=== PATIENT | male | born 1945 | race Caucasian/White ===

== ENCOUNTER 2020-05-08 08:38 | Outpatient (CLI) | payer MEDICARE, OTHER, SELFPAY | END 2020-05-08 08:39 | disposition home or self-care (01) | LOC: ANHCOVIDVC 08:38 | PROVIDERS: PCP Family Medicine | DX: Z23 Encounter for immunization (principal) | CPT/HCPCS: 0001A; 91300 ==

== ENCOUNTER 2020-05-29 08:46 | Outpatient (CLI) | payer MEDICARE, OTHER, SELFPAY | END 2020-05-29 08:47 | disposition home or self-care (01) | LOC: ANHCOVIDVC 08:46 | PROVIDERS: PCP Family Medicine | DX: Z23 Encounter for immunization (principal) | CPT/HCPCS: 0002A; 91300 ==

== ENCOUNTER → 2020-08-22 01:34 | Outpatient (CLI) | payer MEDICARE, OTHER, SELFPAY ==
[2020-08-24 08:34] LABS: SARS-CoV-2 RNA PCR Negative
== END ==
PROVIDERS: PCP Family Medicine; Visit Provider Internal Medicine Gastroenterology
DX: Z01.812 Encounter for preprocedural laboratory examination (principal); Z20.822 Contact with and (suspected) exposure to COVID-19
CPT/HCPCS: C9803; U0003; U0005

== ENCOUNTER 2020-08-25 02:14 | Day surgery (SDC) | payer MEDICARE, OTHER, SELFPAY ==
[2020-08-18 10:17] VITALS: BMI 26.5
--- NOTE | 2020-08-24 12:26 | WPDANESEPPF ---
Anes - Initial Pre Proc Eval Procedure: Operation Date: 08/25/20 08:00 Proposed Procedures p Colonoscopy - Steve Moses MD Date/Time: 08/24/20 12:26 Surgeon: Steve Moses MD Pre Op Diagnosis: diarrhea Patient Data Age: 75 Gender: M Height: 1.79 m Weight: 85 kg Allergies Allergy/AdvReac Type Severity Reaction Status Date / Time No Known Allergies Allergy Verified 08/25/20 06:47 Home Medications Medication Instructions Recorded Confirmed Type montelukast 10 mg tablet 10 mg PO DAILY 03/12/19 08/25/20 History tamsulosin 0.4 mg capsule 0.4 mg PO DAILY 03/12/19 08/25/20 History aspirin 81 mg tablet,delayed 81 mg PO DAILY 12/28/19 08/25/20 History release atorvastatin 10 mg tablet 10 mg PO DAILY #30 tablet 06/07/20 08/25/20 Rx finasteride 5 mg tablet See Rx Instructions .ROUTE 06/09/20 08/25/20 Rx .COMPLEX #90 tablet Patient hx anesthesia problems: none Family hx anesthesia problems: none PMFSH Past Medical History Medical History Allergic rhinitis BPH w urinary obs/LUTS Diverticulosis of intestine, part unspecified, without perforation or abscess with bleeding HLD (hyperlipidemia) Old [place] (myocardial infarction) Skin lesions Smoking Surgical History Surgical History H/O elbow surgery History of appendectomy 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 S/P cholecystectomy Social History Social History Social History: Smoking packs per day: 1 Smoking cigarettes per day: 20.0 Years smoked: 53 Smoking pack-years: 53.00 Smoking status: Heavy tobacco smoker Tobacco type: cigarettes Second hand tobacco smoke exposure: Yes Alcohol intake: current Substance use: never Substance use type: does not use Living arrangements: with family Gender identity (if verbalized by the patient): Male Spiritual care concerns: No Anes - Eval Final PreProcedure Day of Procedure 08/24/20 12:26 Patient weight: overweight Heart: regular rate and rhythm Lungs: clear to auscultation and normal air movement Airway: Mallampati scale class II Neurological: alert and oriented Last oral intake: >/= 8 hours ASA classification: III Emergent: no Anesthetic plan: proceed Anesthesia type and monitoring: general GIVS Informed Consent: The patient's anesthetic plan and its attendant risks and benefits were discussed with the patient/family/POA. Questions were solicited and answers provided to the satisfaction of the patient/family/POA.
[2020-08-25 06:49] VITALS: BP 135/65; PULSE 74; RESP 18; TEMP 36.2; O2SAT 98; BMI 25.7
[2020-08-25] MEDS: LACTATED RINGERS 1,000 ML 150 ML IV CONT (06:53)
--- NOTE | 2020-08-25 07:24 | PM.HPGS ---
History of Present Illness History of Present Illness Consent: Risks, benefits, and alternatives have been discussed and questions answered. Patient agrees to proceed with procedure. Chief complaint: diarrhea Narrative: Fortino Wu is a 75 year old male was had a change in bowel habits. Suddenly, about 3 months ago he began having very urgent bowel movements with diarrhea. Often this is preceded by a crampy lower abdominal pain. At times he has been incontinent of stool. 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 S/P cholecystectomy Social History Social History Social History: Smoking packs per day: 1 Smoking cigarettes per day: 20.0 Years smoked: 53 Smoking pack-years: 53.00 Smoking status: Heavy tobacco smoker Tobacco type: cigarettes Second hand tobacco smoke exposure: Yes Alcohol intake: current Substance use: never Substance use type: does not use Living arrangements: with family Gender identity (if verbalized by the patient): Male Spiritual care concerns: No Meds Home Medications and Allergies Home Medications Medication Instructions Recorded Confirmed Type montelukast 10 mg tablet 10 mg PO DAILY 03/12/19 08/25/20 History tamsulosin 0.4 mg capsule 0.4 mg PO DAILY 03/12/19 08/25/20 History aspirin 81 mg tablet,delayed 81 mg PO DAILY 12/28/19 08/25/20 History release atorvastatin 10 mg tablet 10 mg PO DAILY #30 tablet 06/07/20 08/25/20 Rx finasteride 5 mg tablet See Rx Instructions .ROUTE 06/09/20 08/25/20 Rx .COMPLEX #90 tablet Allergies Allergy/AdvReac Type Severity Reaction Status Date / Time No Known Allergies Allergy Verified 08/25/20 06:47 Vital Signs Vital Signs - 24 hr 06/25/21 06:49 Temperature 36.2 C L Pulse Rate 74 Respiratory Rate 18 Blood Pressure 135/65 Pulse Oximetry 98 Exam Resp: Auscultation: clear to auscultation bilaterally Cardio: Rate: regular rate Rhythm: regular rhythm GI: GI Palp: Yes Soft to palpation and No Tenderness to palpation present (GI) Assessment and Plan Assessment and plan (1) Chronic diarrhea: Code(s): K52.9 - Noninfective gastroenteritis and colitis, unspecified Status: Acute Assessment and Plan: Colonoscopy with possible biopsy or polypectomy or cautery or injection of substances.
[2020-08-25 08:15] VITALS: BP 104/57; PULSE 60; RESP 15; O2SAT 99
[2020-08-25 08:25] VITALS: BP 110/65; PULSE 58; RESP 22; O2SAT 98
[2020-08-25 08:35] VITALS: BP 126/66; PULSE 60; RESP 20; O2SAT 100
== END 2020-08-25 08:53 | disposition home or self-care (01) ==
PROVIDERS: PCP Family Medicine; Visit Provider Internal Medicine Gastroenterology
PROC: 0DJD8ZZ Inspection of Lower Intestinal Tract, Via Natural or Artificial Opening Endoscopic (ICD-10-PCS; CPT 45378; principal; 2020-08-25 08:00)
DX: K59.1 Functional diarrhea (principal); K57.30 Diverticulosis of large intestine without perforation or abscess without bleeding; D12.2 Benign neoplasm of ascending colon; N40.1 Benign prostatic hyperplasia with lower urinary tract symptoms; E78.5 Hyperlipidemia, unspecified; I25.2 Old myocardial infarction; F17.210 Nicotine dependence, cigarettes, uncomplicated; Z79.82 Long term (current) use of aspirin
CPT/HCPCS: 45385; 45380; 88305; J2001; J2704; J7120

== ENCOUNTER → 2021-02-01 12:31 | Outpatient (CLI) | payer MEDICARE, OTHER, SELFPAY ==
--- NOTE | ~2021-02-01 | CT_ITS ---
EXAMINATION: CT lung screening DATE: 02/01/2021 13:32 INDICATION: Personal history of nicotine dependence TECHNIQUE: Computed tomography (CT) of the chest was performed without intravenous contrast. The dose -length product was 106.42 mGy-cm. Automated exposure control and iterative reconstruction technique were employed. COMPARISON: CT dated 12/14/2018 FINDINGS: Heart size is normal. No significant pleural or pericardial effusion. No thoracic lymphaden opathy. There are cholecystectomy clips. There is a 6 mm left lower lobe nodule, image 87 which is no t significantly changed. There is a stable 6 mm lingular nodule, image 66. There are additional stabl e nodules in both lungs which are smaller. No endobronchial lesions. No new pulmonary nodules or mass es. No endobronchial lesions. IMPRESSION: 1. Lung-RADS category 2: Benign appearance or behavior. Continue annual screening with noncontrast lo w-dose chest CT in 12 months. Reviewed, dictated and finalized at location B. [employer] RECOVERY SPECIALIST IMPRESSION: 1. Lung-RADS category 2: Benign appearance or behavior. Continue annual screeni ng with noncontrast low-dose chest CT in 12 months.
== END ==
PROVIDERS: Visit Provider Family Medicine
DX: Z87.891 Personal history of nicotine dependence (principal)
CPT/HCPCS: 71271

== ENCOUNTER 2021-02-08 10:40 | Outpatient (CLI) | payer MEDICARE, OTHER, SELFPAY | END 2021-02-08 10:41 | disposition home or self-care (01) | LOC: ANHAUDIO 10:43 | PROVIDERS: Visit Provider Family Medicine | DX: H91.90 Unspecified hearing loss, unspecified ear (principal) | CPT/HCPCS: 92557; 92567 ==

== ENCOUNTER 2021-03-20 12:49 | Outpatient (RCR) | payer MEDICARE, OTHER, SELFPAY | END 2021-03-20 23:59 | disposition home or self-care (01) | LOC: ANHAUDIO 12:49 | PROVIDERS: Visit Provider Family Medicine | DX: Z46.1 Encounter for fitting and adjustment of hearing aid (principal); H91.90 Unspecified hearing loss, unspecified ear | CPT/HCPCS: 99199 ==

== ENCOUNTER 2022-10-10 11:00 | Outpatient (RCR) | payer MEDICARE, OTHER, SELFPAY ==
--- NOTE | 2022-08-21 11:05 | PTOPEVAL1 ---
Assessment and note entered by Daxa Rodriguez, PT Evaluation Information Assessment Status Evaluation Diagnosis Repeated Falls, oth abnormalities of gait and mobility Subjective Information Notes falls forward when falls. Most recent fall was yesterday, got up from his chair to go to the bathroom, started walking and fell forward in the dining room atbout 25 ft away. Went carpet to tile then carpet. Started about a year ago. Doesn't recall any changes in medication, or traumatic issue at that time. Reported Pain Level Pain Score 0: Self Report Assessment PT Clinical Summary Pt presents with history of repeated falls, most recently one yesterday. Reports this began about a year ago, but does not recall any changes in lifestyle or medications or traumatic event. Evaluation shows abnormal postures, BLE weakness, decreased balance armida small base of support, and gait abnormality. Tinetti balance testing shows moderate risk of falls, Odom scoring is 48/56, and sit to stand testing is 20 seconds. Pt will benefit from therapy to address deficits, educate patient, and improve function with less risk of falls and injury for most safe and functional lifestyle Plan of Care Interventions Neuro Re-education,Patient/Caregiver Educati, Therapeutic Activities,Therapeutic Exercise PT Services Indicated Yes Treatment Frequency and 2x weekly x 8 weeks Duration These treatments will address the objective and functional deficits as defined above. The patient will be advanced safely and appropriately in order for the patient to progress towards his/her prior level of function. Additional exercises will be introduced and as well as a comprehensive home exercise program upon discharge, if needed, ?to ensure carryover of functional gains achieved in the clinic. This treatment plan has been reviewed and agreement upon by the patient.
--- NOTE | 2022-08-21 11:05 | OPREHPOC ---
Outpatient Therapy Plan of Care This is a Multidisciplinary Plan of Care that may contain components documented by all disciplines (PT, OT, and ST.) PT Problem 1 PT Problem #1 Knowledge Deficit PT Goal 1 Goal Pt will verbalize understanding of prognosis and diagnosis related to progresion of therapy. 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
--- NOTE | 2022-09-13 15:54 | PTOPPROG ---
Assessment and note entered by Daxa Rodriguez, PT Assessment Status Progress Report Diagnosis Repeated Falls, oth abnormalities of gait and mobility Therapy diagnosis weakness Subjective Information Since started therapy has modified home setting for fall hazards, has been doing his homework as well. Reports since starting therapy hasn't fallen at all and had been falling multiple times a week prior to that. Self-improvement: 80% Feels like still needs practice Assessment PT Clinical Summary Pt has partially met his goals, mary's improved gait and improved balance scores. Reports feeling 80% improved overall and that he needs practice . Prior therapy session pt demo'd ability to ambulate on uneven surfaces forward and laterally, as well as on gravel. However demo'd difficulty wiht descending steps after that activity in reciprocal pattern without UE assist, as well as decresed foot clearance and increased postural abnormality. Pt is improving overall however appears to be lacking in strength and endurance. Thus patient will benefit from continued therapy to continue improvements and reduce risk of falls. Plan of Care Interventions Neuro Re-education,Patient/Caregiver Educati, Therapeutic Activities,Therapeutic Exercise PT Services Indicated Yes Treatment Frequency and Cont 2x weekly x 4 weeks Duration These treatments will address the objective and functional deficits as defined above. The patient will be advanced safely and appropriately in order for the patient to progress towards his/her prior level of function. Additional exercises will be introduced and as well as a comprehensive home exercise program upon discharge, if needed, ?to ensure carryover of functional gains achieved in the clinic. This treatment plan has been reviewed and agreement upon by the patient.
--- NOTE | 2022-10-10 12:22 | PTOPDC ---
Assessment and note entered by Daxa Rodriguez, PT Assessment Status Discharge Diagnosis Repeated Falls, oth abnormalities of gait and mobility Subjective Information Has not had any falls, has been able to walk where he wants. Takes a cane with him just in case out in the yard. Self perceived Improvement: 80-85% overall. Still needs to work on concentration not to shuffle, has to think about it otherwise will catch himself shuffling. Feels good about what has accomplished. Reported Pain Level Pain Score 0: Self Report Assessment PT Clinical Summary Pt has attended therapy consistently for repeated falls and balance/gait deficit. Today he has met all but one goal which was nearly met related to gluteal strengthening. He reports he has had no falls, has shown improved postures, improved static and dynamic balance, improved endurance, and improved gait patterns. Pt reports feelint 80- 85% improved overall with only complaint that he continues to have to be conscious of picking up his feet when he walks. He understands his home exercise program and which muscles to continue to focus on strengthening. As pt has progressed so wel kvng therapy and met most of his goals, he is being discharged for completion of plan of care.
== END 2022-10-11 13:31 | disposition home or self-care (01) ==
LOC: ANHHIPT 11:00
PROVIDERS: PCP Family Medicine; Visit Provider Family Medicine
DX: R29.6 Repeated falls (principal); R26.89 Other abnormalities of gait and mobility
CPT/HCPCS: 97110; 97112; 97116; 97140; 97750

== ENCOUNTER 2023-02-12 12:52 | Outpatient (CLI) | payer MEDICARE, OTHER, SELFPAY ==
--- NOTE | ~2023-02-12 | US_ITS ---
EXAMINATION: US carotid duplex BI DATE: 02/12/2023 14:02 INDICATION: TIA TECHNIQUE: Grayscale, color Doppler, and pulsed Doppler images of the cervical carotid arteries were obtained. The degree of vessel stenosis is placed in one of the following categories: normal, <50%, 5 0-69%, >=70% but less than near-occlusion, near-occlusion, or total occlusion. Note that percent sten osis relative to normal distal artery lumen diameter is indirectly measured from velocity measurement s as described by Ta, et al. Radiology 2003; 229:340-346. Notes: Normal: Peak systolic velocity <125 centimeters/sec and no plaque <50%. Peak systolic velocity <125 ( EDV <40; ICA/CCA PSV ratio <2.0; used these factors only a tandem lesions or low cardiac output or co ntralateral disease) 50-69 %: PSV 125-230 (EDV 40-100; ratio 2-4) >= 70% but less than near occlusion: PSV greater than 230 (EDV > 100; ratio> 4.0) Near Occlusion: PSV that is variable; markedly narrowed lumen Occlusion: Absent flow on color/spectral Doppler and no lumen on martínez scale. COMPARISON: None. FINDINGS: RIGHT: The right common carotid artery (CCA) peak systolic velocity (PSV) is 90 cm/s. The right internal car otid artery (ICA) PSV is 85 cm/s. The right ICA end-diastolic velocity (EDV) is 16 cm/s. The right IC A/CCA PSV ratio is 0.9. The external carotid artery (ECA) PSV is 85 cm/s. There is antegrade flow in the right vertebral artery. LEFT: The left CCA PSV is 76 cm/s. The left ICA PSV is 78 cm/s. The left ICA EDV is 18 cm/s. The left ICA/C CA PSV ratio is 1.0. The ECA PSV is 109 cm/s. There is antegrade flow in the left vertebral artery. IMPRESSION: 1. Less than 50% stenosis in the right internal carotid artery by sonographic criteria. 2. Less than 50% stenosis in the left internal carotid artery by sonographic criteria. Reviewed, dictated and finalized at location A. ANENT WAVER IMPRESSION: 1. Less than 50% stenosis in the right internal carotid artery by sonographic alex steen. 2. Less than 50% stenosis in the left internal carotid artery by sonographic sam bose.
--- NOTE | ~2023-02-12 | CT_ITS ---
Head CT History: Status post fall Technique: Axial non-contrast imaging of the brain was performed prior to and following intravenous administration of 100 cc of Omnipaque 350 contrast material. Dose reduction technique was used on thi s scan by utilizing automated exposure control and iterative reconstruction technique. The dose-lengt h product (DLP) was 2043.00 mGy-cm. Findings: There is no evidence of intracranial hemorrhage, mass lesion, or acute infarct. Brain par enchyma appears normal. There is prominent dilatation of the lateral and third ventricles, out of pro portion to the fourth ventricle and other subarachnoid spaces. The calvarium appears normal. The vis ualized paranasal sinuses and mastoid air cells are clear. No abnormal postcontrast enhancement identified. Impression: Dilatation of the lateral and third ventricles out of proportion to the fourth ventricle in the subar achnoid spaces. Degree of dilatation is progressed since 07/27/2008. Findings suggest an element of ch ronic obstructive hydrocephalus at the level of the cerebral aqueduct. Correlate clinically. Reviewed, dictated and finalized at location . [place] BUSINESS MANAGER Impression: Dilatation of the lateral and third ventricles out of proportion to the fourth ventricle in the subarachnoid spaces. Degree of dilatation is progressed since 07/27/2008. Findings suggest an element of chronic obstructive hydrocephalus at the level of the cerebral aqueduct. Correlate clinically.
== END 2023-02-12 12:53 | disposition home or self-care (01) ==
PROVIDERS: PCP Family Medicine; Visit Provider Family Medicine
DX: I65.23 Occlusion and stenosis of bilateral carotid arteries (principal); F03.90 Unspecified dementia, unspecified severity, without behavioral disturbance, psychotic disturbance, mood disturbance, and anxiety
CPT/HCPCS: 70470; 93880; Q9967

== ENCOUNTER 2024-04-13 15:25 | Outpatient (CLI) | payer MEDICARE, OTHER, SELFPAY ==
--- NOTE | ~2024-04-13 | CT_ITS ---
EXAMINATION:CT lung screening DATE: 04/13/2024 15:43 INDICATION: Nicotine dependence, cigarettes, uncomplicated. Current smoker with 50 pack year history. TECHNIQUE: Computed tomography (CT) of the chest was performed without intravenous contrast. Automate d exposure control and iterative reconstruction technique were employed. The dose-length product (DLP ) was 127.37 mGy-cm. COMPARISON: Chest CT 02/01/2021 FINDINGS: The lungs demonstrate mild atelectasis. There is a stable 5 mm nodule in right lung upper l obe. There are two stable 4 mm nodules in left lower lobe. A calcified right lung nodule and calcifie d right hilar lymph nodes are consistent with old granulomatous disease. No pleural effusion. The hea rt size is normal. No pericardial effusion. There are changes of cholecystectomy. There are bridging endplate osteophytes at multiple levels in the spine, consistent with diffuse idiopathic skeletal hyp erostosis (DISH). There is severe cervical spondylosis. IMPRESSION: 1. Lung-RADS category 2: Benign appearance or behavior. Continue annual screening with noncontrast lo w-dose chest CT in 12 months. Reviewed, dictated and finalized at location A. TURE CONNECTOR IMPRESSION: 1. Lung-RADS category 2: Benign appearance or behavior. Continue annual screeni ng with noncontrast low-dose chest CT in 12 months.
--- OUTSIDE RECORDS SUMMARY | 2024-04-13 16:07 | XMS_ITS | Clinical Summary ---
Author Organization [facility] Address [address] [place] [address] Care Team Providers Care Wedding Planner Name Role Phone Carlos A Cantu MD Primary Care Provider [phone] Allergies No known active allergies Medications traMADol (ULTRAM) 50 MG tabletIndications :Acute Pain < 7 Day Supply Take 2 tablets (100 mg total) by mouth every 6 (six) hours as needed for Pain. Indications: Acute Pain < 7 Day Supply 20 tablet 05/16/19 24 Active dexamethasone (DECADRON) 4 MG tabletIndications :Obstructive hydrocephalus ([facility]),Aqueduct al stenosis ([facility]) Take 1 tablet (4 mg total) by mouth see administration instructions. 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 No 05/14/2023 Humiliation, Afraid, Rape, and Kick questionnair e Answer Date Recorded Within the last year, have y ou been afraid of your partner or ex-partner? No 05/14/2023 Within the last year, have y ou been humiliated or emotionally abused in other ways by your partner or ex-partner? No Within the last year, have y ou been kicked, hit, slapped, or otherwise physically hurt by your partner or ex-partner? No 05/14/2023 Within the last year, have y ou been raped or forced to have any kind of sexual activity by your partner or ex-partner? No 05/14/2023 Overall Financial Resource Strain (CARDIA) Answe r Date Recorded How hard is it for you to pa y for the very basics like food, housing, medical care, and heating? Not hard at all 05/14/2023 Hunger Vital Sign Answer Date Recorded Within the past 12 months, y ou worried that your food would run out before you got the money to buy more. Never true 05/14/19 24 Within the past 12 months, t he food you bought just didn't last and you didn't have money to get more. Never true 05/14/2023 PRAPARE - Transportation Answer Date Re corded In the past 12 months, has l ack of transportation kept you from medical appointments or from getting medications? No 05/01 In the past 12 months, has l ack of transportation kept you from meetings, work, or from getting things needed for daily living? No 05/14/2023 Housing Stability Vital Sign Answer Leroy e Recorded In the last 12 months, was t here a time when you were not able to pay the mortgage or rent on time? No 05/14/2023 In the last 12 months, how many places have you lived? 1 05/14/2023 In the last 12 months, was t here a time when you did not have a steady place to sleep or slept in a alf (including now)? No 05/14/2023 Sex and Gender Information Value Date Recorded Sex Assigned at Not on file Legal Sex Male 8:19 PM CDT Gender Identity Not on file Sexual Orientation Not on file Last Filed Vital Signs Vital Sign Reading Time Taken Comments Blood Pressure 123/63 08/19/2023 10:15 AM CDT Pulse 72 08/19/2023 10:15 AM CDT Temperature 36.8 C (98.3 F) 08/19/2023 10:15 AM CDT Respiratory Rate 14 05/16/2023 9:27 AM CDT Oxygen Saturation 97% 08/19/2023 10:15 AM CDT Inhaled Oxygen Concentration - - Weight 79.8 kg (176 lb) 08/19/2023 10:15 AM CDT Height 177.8 cm (5' 10 ) 08/19/2023 10:15 AM CDT Body Mass Index 25.25 08/19/2023 10:15 AM CDT Plan of Treatment Health Maintenance Due Date Last Done Comments Pneumococcal Vaccine: 65+ Years (1 of 2 - PCV) 1951 PHQ-2 (Physician [place]) 1959 Hepatitis C 1965 Lung Cancer Screening 1997 Annual Medicare Wellness Visit 2012 Zoster Vaccines (2 of 3) 03/03/2013 01/06/2013 RSV Immunization or 60+ Years (1 - 1-dose 75+ series) 2022 COVID-19 Vaccine ( season) 2023 11/28/2022, 12/10/2021, 06/14/2021, Additional history exists Influenza Adult (#1) 2023 11/01/2020, 11/02/2019, 11/18/2018, Additional history exists PHQ-2 (Physician [place]) 03/03/2024 DTaP, Tdap and Td Vaccines (2 - Td or Tdap) 08/11/2028 08/11/2018 Meningococcal B Vaccine Aged Out No l onger eligible based on patient's age to complete this topic Meningococcal Vaccine Aged Out No jen rylan eligible based on patient's age to complete this topic RSV Immunizations Under 20 Months Aged Out No longer eligible based on patient's age to complete this topic Goals Goal Patient Goal Type Associated Problems Recent Progress Patient-Stated? Author Health - patient able to perform ADLs independently Lifestyle No Maisha Rubi, RN Insurance MEDICARE [facility] Advance Directives * Full Code (Latest Code Status on File) Date Activated Date Inactivated Comments 05/14/2023 6:18 PM 05/16/2023 2:47 PM Care Teams Wedding Planner Relationship Specialty Start Date End Date Carlos A Cantu MD [id number] [facility] [address] [place] [address] PCP - General FAMILY PRACTICE 03/11/23
--- OUTSIDE RECORDS SUMMARY | 2024-04-13 16:07 | XMS_ITS | Continuity of Care Document ---
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 facilities. It does not include entries that were removed or entered in error. Problem Status Onset Date Problem Type Date of Resolution Comments Source Allergic Rhinitis ([facility] [id number]) Active Condition [facility] Back pain Active Condition [facility] Benign prostatic hyperplasia Active Condition [facility] Hearing loss Active Condition [facility] History of varicose veins Active Condition [facility] Hyperlipidemia Active Condition [facility] Pain of left hand Active Condition [facility] Tobacco use Active Condition [facility] Diagnosis: ICD-10-CM Z13.9 Encounter for screening, unspecified Active Diagnosis [facility] Diagnosis: ICD-10-CM G91.1 Obstructive hydrocephalus Active Diagnosis [facility] Diagnosis: ICD-10-CM Z13.5 Encounter for screening for eye and ear disorders Active Diagnosis [facility] Medications Combined list of outpatient medications from [facility] facilities.Medications provided include 1) outpatient medications from the last 15 months, and 2) patient-reported medications. Medication Details Route Status Patient Instructions Prescription Expires Prescription Number Last Dispense Date Ordering Provider Order Date Order Qty Source DEXAMETHASO NE (DEXAMETHAS ONE), 4MG, TABLET, ORAL, [facility] 100 ea. BOTTLE Cancele d [id number] : 2023 0 Pharmac y Data Transac tion Service Facilit y LOPERAMIDE HCL 2MG CAP TAKE ONE CAPSULE BY MOUTH ONCE A DAY NEEDED FOR DIARRHEA ORAL ACTIVE 08/18/2024 [id number] Cassandra KOROMA 2023 90 [facility] TAMSULOSIN HCL 0.4MG CAP TAKE 1 CAPSULE BY MOUTH EVERY EVENING ORAL ACTIVE Cassandra KOROMA 2023 [facility] TRAMADOL HCL (tramadol HCl), 50 MG, TABLET, ORAL, AMNEAL PHARMACE, 500 ea. BOTTLE Active [id number] 2023 20 Pharmac y Data Transac tion Service Facilit y Allergies, Adverse Reactions, Alerts Combined list of allergies from Department of Defense and Veterans Affairs facilities. It does not include entries that were removed or entered in error. Substance Category Reaction Severity Reaction type Status Date Reported Comments Source No Known Allergies Drug allergy (disorder) active 05/15/2015 [employer] Yonis LIN ([facility] Immunizations Combined list of available immunizations from the Department of [facility] and [facility] facilities. 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 Comments Source COVID-19 (PFIZER), MRNA, LNP-S, PF, JENI-SUCROSE, 30 MCG/0.3 ML (AGES 12+ YEARS) 1 2022 309 complet ed [facility] INFLUENZA, HIGH-DOSE, QUADRIVALENT, PF 1 2022 197 complet ed [facility] COVID-19 (PFIZER), MRNA, LNP-S, BIVALENT, PF, 30 MCG/0.3 ML DOSE 4 2021 300 complet ed [facility] INFLUENZA, HIGH-DOSE, QUADRIVALENT, PF 1 2021 197 complet ed [facility] COVID-19 (MODERNA), MRNA, LNP-S, PF, 100 MCG/0.5ML DOSE OR 50 MCG/0.25ML DOSE 4 2021 207 complet ed MOD; [id number]; 2 [facility] COVID-19 (PFIZER), MRNA, LNP-S, PF, 30 MCG/0.3 ML DOSE 3 2020 208 complet ed [facility] COVID-19, mRNA, LNP-S, PF, 30 mcg/0.3 mL dose 2020 [place] (PFR[place] Not Given COVID-19, mRNA, LNP-S, PF, 30 mcg/0.3 mL dose DoD INFLUENZA, HIGH-DOSE, QUADRIVALENT, PF 1 2020 197 complet ed [facility] influenza, high-dose, quadrivalent 2020 [facility], () Not Given influenza , high-dose , quadrival ent DoD INFLUENZA, UNSPECIFIED FORMULATION 2020 88 complet ed [facility] COVID-19 (Yangaroo), MRNA, LNP-S, PF, 30 MCG/0.3 ML DOSE 2 2020 208 complet ed [facility] COVID-19 ([place]), MRNA, LNP-S, PF, 30 MCG/0.3 ML DOSE 1 2020 208 complet ed [facility] INFLUENZA, HIGH-DOSE, QUADRIVALENT, PF 1 2019 197 complet ed [facility] influenza, high-dose, quadrivalent 2019 [facility], () Not Given influenza , high-dose , quadrival ent DoD INFLUENZA, UNSPECIFIED FORMULATION 2019 88 complet ed [facility] INFLUENZA, HIGH-DOSE, TRIVALENT, PF 1 2018 135 complet ed [facility] Influenza, high dose seasonal 2018 [facility], () Not Given Influenza , high dose seasonal DoD TDAP 2018 115 complet ed Right Deltoid [facility] INFLUENZA, HIGH-DOSE, TRIVALENT, PF 1 2017 135 complet ed [facility] Influenza, high dose seasonal 2016 [facility], () Not Given Influenza , high dose seasonal Do[facility] INFLUENZA, HIGH-DOSE, TRIVALENT, PF 1 2016 135 complet ed [facility] Influenza, high dose seasonal 2015 [facility], () Not Given Influenza , high dose seasonal DoD INFLUENZA, HIGH-DOSE, TRIVALENT, PF 1 2015 135 complet ed [facility] INFLUENZA, HIGH-DOSE, TRIVALENT, PF 1 2014 135 complet ed [facility] ZOSTER LIVE 1 2012 121 complet ed [facility] INFLUENZA, SPLIT VIRUS, TRIVALENT, PRESERVATIVE 1 2012 141 complet ed [facility] Vital Signs Combined list of inpatient and outpatient Vital Signs from Department of [facility] and [facility], ranging from 12 months to all on record, depending upon the facility. Vital Sign Value Date Comments Source SYSTOLIC BLOOD PRESSURE 133 08/18/2023 14:24:15 [facility] DIASTOLIC BLOOD PRESSURE 71 08/18/2023 14:24:15 [facility] PULSE OXIMETRY 95 08/18/2023 14:24:15 [facility] WEIGHT 184.6 08/18/2023 14:24:15 [facility] BMI 27 kg/m2 08/18/2023 14:24:[address] [facility] [facility] PAIN 0 08/18/2023 14:24:[address] [facility] HEIGHT 70 08/18/2023 14:24:15 [facility] TEMPERATURE 97.7 08/18/2023 14:24:15 [facility] PULSE 69 08/18/2023 14:24:15 [facility] RESPIRATION 18 08/18/2023 14:24:15 [facility] Encounters Combined list of: 1) Encounters from Department of Veterans Affairs facilities going backup to the last 18 months, not all VA inpatient encounters are included; 2) Encounters from the Department of Defense facilities going backup to 280 months. Location Location Details Encounter Type Encounter Number Reason For Visit Attending Provider ADM Date DC Date Status Disposition Source [facility] Outpatient Encounter [id number] 11/14 [facility] Outpatient Encounter [id number] 11/28 [facility] Outpatient Encounter [id number] 04/10 [facility] Outpatient Encounter [id number] JOILDA A 08/[address] [facility] FUNDUS PHOTOGRAPH Y W/I&R [id number] Diagnos is: ICD-10- CM Z13.5 Encount er for screeni ng for eye and ear disorde rs BENJAMIN VALLECILLO 08/17 [facility] OFFICE O/P EST LOW 20 MIN [id number] Diagnos is: ICD-10- CM G91.1 Obstruc tive hydroce phalus DEPAULO,PORTER DONGE 08/17 [facility] Outpatient Encounter [id number] Diagnos is: ICD-10- CM Z13.9 Encount er for screeni ng, unspeci MANE Coy 08/17 [facility] Social History Combined list of available smoking, tobacco, and other social history from Department of Defense and [facility] Affairs facilities. Social History Type Response Date Comment Sourc e Tobacco smoking status NHIS VA-TOBACCO USER EVERY DAY 08/18/2023 [facility] History of tobacco use VA-TOBACCO USE WI 30 MIN OF WAKEUP 08/18/2023 [facility] History of tobacco use VA-TOBACCO USER E VERY DAY 06/05/2022 [facility] History of tobacco use VA-TOBACCO USER E VERY DAY 06/13/2021 [facility] History of tobacco use MO-TOBACCO USE CO UNSEL NO 08/05/2019 [facility] History of tobacco use MO-TOBACCO USE CO UNSEL NO 07/02/2018 [facility] This section is an empty social history section. [facility] Plan of Care List of future care activities from Department of [facility] Affairs facilities. Additional future care activities may be listed in the Assessment and Plan section. Date/Time Care Activity Care Activity Detail Facili ty 08/17/2024 AMBULATORY - MEDICINE AMBULATORY - MEDICI NE [facility]
--- OUTSIDE RECORDS SUMMARY | 2024-04-13 16:07 | XMS_ITS | Encounter Summary ---
Author Name [facility] Organization [facility] Address [address] [place] [id number] Care Team Providers Care Painter Barrel Name Role Phone BRENDA KOROMA Primary Care Provider Unavailab le Insurance Providers: All historical and current Section Date Range: From patient's date of to the date document was created. This section includes the names of all active insurance providers for the patient. Insurance Provider Type of Coverage Plan Name Start of Policy Coverage End of Policy Coverage Group Number Member ID Insurance Provider's Telephone Number Policy Ibarra's Name Patient's Relationship to Policy Ibarra MEDICARE (WNR) MEDICARE (M) PART A Mar 03, 2012 PART A [id number] DEE DEE [place] PATIENT MEDICARE (WNR) MEDICARE (M) PART B Mar 03, 2012 PART B [id number] DEE DEE [place] PATIENT -FO R-LIFE [place] RE FOR LIFE WNR Mar 03, 2017 FOR LIFE [id number] [phone] DEE DEE [place] PATIENT -FO R-LIFE [place] RE FOR LIFE WNR Jun 13, 2014 FOR LIFE [id number] [phone] DEE DEE [place] PATIENT Selected Encounter This section includes the information on record at [place] for the Encounter. Date/Time Encounter Type Encounter Description Reason Provider Source Aug 18, 2023 02:30 PM OFFICE O/P EST LOW 20 MIN PRIMARY CARE/MEDICINE ICD-10-CM G91.1 Obstructive hydrocephalus ANGELINA KOROMA IHAnup Encounter Template Text not used by [place] Assessments - Encounter Diagnoses This section includes the primary and secondary diagnoses documented for the Encounter. Date/Time Primary/Secondary Diagnosis Diagnosis Name Provider Source Aug 18, 2023 03:33 PM PRIMARY Obstructive hydrocephalus MINNIE KOROMA [facility] Aug 18, 2023 03:33 PM SECONDARY Benign prostatic hyperplasia with lower urinary tract symp MINNIE KOROMA [facility] Aug 18, 2023 03:33 PM SECONDARY Diarrhea, [facility] Aug 18, 2023 03:33 PM SECONDARY Mixed hyperlipidemia MINNIE KOROMA [facility] Aug 18, 2023 03:33 PM SECONDARY Tobacco use GAMINNIE E [facility] Aug 18, 2023 03:33 PM SECONDARY Unspecified hearing loss, bilateral [facility]FFANIEMADIN[facility]I [facility] Vital Signs: All taken on the encounter date This section contains inpatient and outpatient Vital Signs collected on the date of the Encounter. Date/Time Temperature Pulse Blood Pressure Respiratory Rate SP02 Pain Height Weight Body Mass Index Source Aug 18, 2023 02:24 PM 97.7 69 133/71 [address] [facility] Social History: Smoking Status (Most current) and Tobacco Use (All prior to encounter date) This section includes the most current, and the historical, smoking and tobacco- related health factors from the [place] facility where the Encounter took place. Current Smoking Status This section includes the most current smoking, or tobacco-related health factor, from the [place] facility where the Encounter took place. Date/Time Current Smoking Status Comment Facil ity Aug 18, 2023 02:30 PM VA-TOBACCO USER EVERY DAY [facility] Tobacco Use History This section includes a history of the smoking, or tobacco-related health factors, that were collected on or before the date of the Encounter. The data comes from the [place] facility where the Encounter took place. Date/Time Smoking Status/Tobacco Use Comment F acility Aug 18, 2023 02:30 PM VA-TOBACCO USE ADVICE 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 Aug 18, 2023 02:30 PM VA-TOBACCO USE MED NO [facility] Aug 18, 2023 02:30 PM VA-TOBACCO USE [place] [address] [facility] Aug 18, 2023 02:30 PM VA-TOBACCO USER EVERY DAY [facility] Aug 05, 2019 11:54 AM VA-TOBACCO USE [address] [facility] Aug 05, 2019 11:54 AM VA-TOBACCO USE ADVICE . [facility] Aug 05, 2019 11:54 AM VA-TOBACCO USE CHEMISTRY QUALITY CONTROL ANALYST NO . [facility] Aug 05, 2019 11:54 AM VA-TOBACCO USE MED NO . [facility] Aug 05, 2019 11:54 AM VA-TOBACCO USE WI 30 MIN OF WAKEUP . [facility] Aug 05, 2019 11:54 AM VA-TOBACCO USER EVERY DAY . [facility] July 02, 2018 10:17 AM VA-TOBACCO USE 30 YEARS OR MORE . [facility] July 02, 2018 10:17 AM VA-TOBACCO USE ADVICE . [facility] July 02, 2018 10:17 AM VA-TOBACCO USE CHEMISTRY QUALITY CONTROL ANALYST NO . [facility] July 02, 2018 10:17 AM VA-TOBACCO USE MED NO . [facility] July 02, 2018 10:17 AM VA-TOBACCO USE WI 30 MIN OF WAKEUP . [facility] July 02, 2018 10:17 AM VA-TOBACCO USER EVERY DAY [facility] Encounter Notes: All associated encounter notes This section contains the clinical notes associated to the Encounter. Date/Time Encounter Note(s) Provider Source Aug 18, 2023 03:11 PM PRIMARY CARE NOTE: LOCAL TITLE: PRIMARY CARE PROVIDER ESTABLISHED VISIT ST STANDARD TITLE: PRIMARY CARE NOTE DATE OF NOTE: AUG 18, 2023@15:11 ENTRY DATE: AUG 18, 2023@15:11:50 AUTHOR: BRENDA KOROMA COSIGNER: URGENCY: STATUS: COMPLETED ESTABLISHED PATIENT [id number]: REASON FOR VISIT/CHIEF COMPLAINT: 78yo male here for f/u visit Last visit June 2022. NonVA Providers:Dr Tao at [place] [facility]: [facility] HPI: Reports he was having a lot of issues with falls w/in the last year. he was found to have extra fluid on his brain/obstructive hydrocephalus. He reports having surgery( Stereotactic MRI guided endoscopic third ventriculostomy) about 3 months to correct the issue and he has been doing well since w/o any repeat falls. He has a f/u tomorrow with neurosurgery. HLD, no longer using atorvastatin. Reports he stopped this medication b/c he started eating more healthy. --he will be having labs with his nonVA PCP. WHAT IS YOUR GOAL FOR TODAY? SOURCE(S) OF HISTORY: Patient PAST MEDICAL HISTORY: 1) Pain of left hand 2) Benign prostatic hyperplasia 3) Hyperlipidemia 4) Hearing loss 5) Allergic Rhinitis ([facility] [id number]) 6) History of varicose veins 7) Back pain 8) Tobacco use FAMILY HISTORY: Reviewed and unchanged. SOCIAL HISTORY: NICOTINE: smoking 1 ppd ILLICIT DRUGS: none ALCOHOL: 1 beer, 3-4 times/week EXERCISE/DIET: walking MARITAL STATUS: , living alone ALLERGIES: Patient has answered NKA ALLERGY REVIEW: Allergy list reviewed and remains current. MEDICATIONS: Active and Recently Outpatient Medications (excluding Supplies): Active Non-VA Medications Status 1) Non-VA ATORVASTATIN CALCIUM 40MG TAB 20MG BY MOUTH ACTIVE EVERY EVENING MEDICATION RECONCILIATION: I have reviewed the patient's medication list with the patient and/or his/her care-oracle fusion consultant. Handwritten corrections, additions and/or deletions were made to the list. Corrected Outpatient Medication List was provided to the patient/caregiver. REVIEW OF SYSTEMS: Neg other than as noted in HPI PHYSICAL EXAMINATION: VITALS (most recent, as listed in the electronic record): Temperature: 97.7 F [36.5 C] (08/18/2023 14:24) BP: 133/71 (08/18/2023 14:24) Pulse: 69 (08/18/2023 14:24) Resp: 18 (08/18/2023 14:24) PulsOx: 95% (08/18/2023 14:24) Pain: 0 (08/18/2023 14:24) Weight: Measurement DT WEIGHT LB(KG)[BMI] 08/18/2023 14:24 184.6(83.73)[27] Gen: NAD EYE: PERRLA Cardiovascular: RRR, no murmurs, no edema Respiratory: Lungs CTAB Abd/GI: Abdomen soft, non-tender, non-distended, no masses or guarding Extremities: adequate ROM, no edema Hemo/lymph: no adenopathy, excessive bruising Endo: Thyroid without palpable nodules, no excess hair growth Psych: mood and affect appropriate Neuro: Alert and oriented, CN2-12 grossly intact Skin: Clear and intact DATA REVIEW: No HEMOGLOBIN A1C EO data found Lipid Panel: No LIPID PANEL EO data found CMP: No COMPREHENSIVE METABOLIC PANEL EO data found CBC: No CBC EO data found No PSA (LAST 10 5Y) EO data found TSH: No TSH (1YR) EO data found No VITAMIN D EO data found INR: No INR EO data found UA: No URINALYSIS EO data found IM - IMMUNIZATIONS ADMINISTERED Immunization Series Date Facility Reaction Info COVID-19 (MODERNA), MRNA, LNP-S,* 4 06/14/2021 [facility] <C> COVID-19 (PFIZER), MRNA, LNP-S, * 4 12/10/2021 [facility] COVID-19 (PFIZER), MRNA, LNP-S, * 3 12/18/2020 [facility]* COVID-19 (PFIZER), MRNA, LNP-S, * 2 05/29/2020 [facility] * COVID-19 (PFIZER), MRNA, LNP-S, * 1 05/08/2020 [facility] * COVID-19 (PFIZER), MRNA, LNP-S, * 1 11/28/2022 [facility] INFLUENZA, HIGH-DOSE, QUADRIVALE* 1 11/14/2022 [facility] INFLUENZA, HIGH-DOSE, QUADRIVALE* 1 11/26/2021 [facility] INFLUENZA, HIGH-DOSE, QUADRIVALE* 1 11/20/2020 [facility] INFLUENZA, HIGH-DOSE, QUADRIVALE* 1 11/29/2019 [facility] INFLUENZA, HIGH-DOSE, TRIVALENT,* 1 11/18/2018 [facility] INFLUENZA, HIGH-DOSE, TRIVALENT,* 1 12/13/2017 [facility] INFLUENZA, HIGH-DOSE, TRIVALENT,* 1 11/10/2016 [facility] INFLUENZA, HIGH-DOSE, TRIVALENT,* 1 12/20/2015 [facility] INFLUENZA, HIGH-DOSE, TRIVALENT,* 1 12/22/2014 [facility] INFLUENZA, SPLIT VIRUS, TRIVALEN* 1 12/08/2012 [facility] INFLUENZA, UNSPECIFIED FORMULATI* [facility]* INFLUENZA, UNSPECIFIED FORMULATI* [facility]* TDAP 08/11/2018 [facility] <C> ZOSTER LIVE 1 01/06/2013 [facility] CONTRAINDICATED No data available REFUSED ======= Immunization Date Facility Info PNEUMOCOCCAL CONJUGATE, UNSPECIF* 06/10/2022 [facility] <C> ASSESSMENT/PLAN: 1) Hydrocephalus: s/p ventriculostomy in May 2023 with nonVA Neurosurgery. Was having recurrent falls which prompted further evaluation. --has been doing well since then and reports no further falls. --has f/u set for tomorrow with Neurosurgery. 2) HLD: managed by non VA PCP. No longer on statin, reports he stopped when he began improving diet. --reports labs done with PCP. --cont f/u with PCP. 3) Tobacco use: continues to smoke 1ppd, no desire to quit smoking. --encouraged to quit. 4) BPH: on tamsulosin, will continue to get med from nonVA PCP. 5) Loose stools: using loperamide daily to prevent diarrhea. Reports no issues with diarrhea or constipation. --med renewed. 6) Hearing loss: can f/u with Audiology as needed for hearing check. RETURN TO CLINIC: 12 months SUMMARY STATEMENT: Plan of care has been discussed with including expected therapeutic benefits and potential side effects of prescribed medication and treatments. verbalizes understanding and is in agreement with the plan of care. Patient was instructed to keep all scheduled appointments and contact booster operator for any additional problems. PREVENTION & SCREENING: ALCOHOL: Clinical Reminder not due now or within a month COLORECTAL CANCER: Clinical Reminder not due now or within a month BLOOD PRESSURE: Clinical Reminder not due now or within a month HEMOGLOBIN A1C: Clinical Reminder not due now or within a month Sexual Orientation: The patient thinks of their sexual orientation as: Straight or Heterosexual /deja/ BRENDA KOROMA Staff Physician Signed: 08/18/2023 15:33 BRENDA KOROMA [facility] Aug 18, 2023 02:27 PM NURSING NOTE: LOCAL TITLE: V15 PACT FACE TO FACE NOTE STL STANDARD TITLE: NURSING NOTE DATE OF NOTE: AUG 18, 2023@14:27 ENTRY DATE: AUG 18, 2023@14:28:02 AUTHOR: MAGDIEL OSORIO COSIGNER: URGENCY: STATUS: COMPLETED Provider Visit: Patient Identifiers : Full Name Date of Reason for visit: Established Follow-Up Mode of Arrival: Ambulatory Allergy Review: Patient has answered NKA Allergy list reviewed and remains current. Recent Vital Signs: Temperature: 97.7 F [36.5 C] (08/18/2023 14:24) Pulse: 69 (08/18/2023 14:24) Respiration: 18 (08/18/2023 14:24) B/P: 133/71 (08/18/2023 14:24) Pain: 0 (08/18/2023 14:24) Wt: 184.6 lb [83.73 kg] (08/18/2023 14:24) Ht: 70 in [177.8 cm] (08/18/2023 14:24) BMI: 26.5 POX: 95% (08/18/2023 14:24) Would you like to discuss any personal problem, family problem, alcohol use, drug use, or a mental or emotional illness? No Contact provided Primary Care phone number and encouraged to call if any questions or concerns. Review that after hours nurse line [phone] and emergency room are available 23/09 for patient use. Contact verbalized good understanding. Suicide Screen: C-SSRS Screening [place]man-Suicide Severity Rating Scale (C-SSRS Screener) 1. Over the past month, have you wished you were or wished you could go to sleep and not wake up? No 2. Over the past month, have you had any actual thoughts of killing yourself? No 3. Over the past month, have you been thinking about how you might do this? Response not required due to responses to other questions. 4. Over the past month, have you had these thoughts and had some intention of acting on them? Response not required due to responses to other questions. 5. Over the past month, have you started to work out or worked out the details of how to kill yourself? Response not required due to responses to other questions. 6. If yes, at any time in the past month did you intend to carry out this plan? Response not required due to responses to other questions. 7. In your lifetime, have you ever done anything, started to do anything, or prepared to do anything to end your life (for example, collected pills, obtained a gun, gave away valuables, went to the roof but didn't jump)? No 8. If YES, was this within the past 3 months? Response not required due to responses to other questions. 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 The /caregiver was informed that we will continue to ask this screening question every 5 years. They can contact their provider/healthcare team if they have concerns about exposures and would like to be screened sooner. Printed information was offered and provided if desired. Alcohol Use Screen (AUDIT-C): Alcohol Screen: SCREEN FOR ALCOHOL (AUDIT-C) An alcohol screening test (AUDIT-C) was negative (score=3). 1. How often did you have a drink containing alcohol in the past year? Consider a drink to be a 12 ounce can or bottle of regular beer, 8 ounces of malt liquor, a 5 ounce glass of table wine, or a 1.5 ounce shot of liquor (like scotch, gin, or vodka). Two to three times per week 2. How many drinks containing alcohol did you have on a typical day when you were drinking in the past year? One or two drinks 3. How often did you have six or more drinks on one occasion in the past year? Never Depression Screening: Perform PHQ-2 A PHQ-2 screen was performed. The score was 0 which is a negative screen for depression. Over the past two weeks, how often have you been bothered by the following problems? 1. Little interest or pleasure in doing things Not at all 2. Feeling down, depressed, or hopeless Not at all Homelessness/Food Insecurity Screen: In the past 2 months, have you been living in stable housing that you own, rent, or stay in as part of a household? Yes - Living in stable housing. Are you worried or concerned that in the next 2 months you may NOT have stable housing that you own, rent, or stay in as part of a household? No - Not worried about housing near future The reports the following: Within the past 12 months, you worried whether your food would run out before you got money to buy more. Never true Within the past 12 months, the food you bought just didn't last and you didn't have money to get more. Never true PTSD Screening: PC-PTSD-5 A PTSD screening test (PC-PTSD-5) was negative (score=0). IN THE PAST MONTH, have you ever had any experience that was so frightening, horrible or traumatic. For example: A serious accident or fire a physical or sexual assault or abuse An earthquake or flood A war Seeing someone be killed or seriously injured Having a loved one through homicide or suicide 1. Have you ever experienced this kind of event? NO 2. Had nightmares about the event(s) or thought about the event(s) when you did not want to? Response not required due to responses to other questions. 3. Tried hard not to think about the event(s) or went out of your way to avoid situations that reminded you of the event(s)? Response not required due to responses to other questions. 4. Been constantly on guard, watchful, or easily startled? Response not required due to responses to other questions. 5. [place] numb or detached from people, activities, or your surroundings? Response not required due to responses to other questions. 6. [place] guilty or unable to stop blaming yourself or others for the event(s) or any problems the event(s) may have caused? Response not required due to responses to other questions. Frail/Elderly Screen: ADL Screen - Davidson Index of [place] in Activities of Daily Living Bathing: (3 Points) Receives no assistance (gets in and out of tub by self, if tub is usual means of bathing) Dressing: (3 Points) Gets clothes and gets completely dressed without assistance. Toileting: (3 Points) Goes to toilet room , cleans self, and arranges clothes without assistance (may use object for support such as cane, walker, or wheelchair, and may manage own night bedpan or commode, emptying same next morning) Transferring: (3 Points) Moves in and out of bed and in and out of chair without assistance (may be using object for support, such as cane or walker) Continence: (3 Points) Controls urination and bowel movement completely by self Feeding: (3 Points) Feeds self without assistance Total Score: 18 Points 18 = High (patient independent) 6 = Low (patient very dependent) IADL Screen - [place] Instrumental Activities of Daily Living Scale Ability to use telephone: (1 point) Operates Telephone on own initiative; looks up and dials numbers. Shopping: (1 point) Takes care of all shopping needs independently. Food preparation: (1 point) Plans, prepares, and serves adequate meals independently. Housekeeping: (1 point) Maintains house alone with occasional assistance (heavy work). Laundry: (1 point) Does personal laundry completely. Mode of transportation: (1 point) Travels independently on public transportation or drives own car. Responsibility for own medications: (1 point) Is responsible for taking medications in correct dosages at correct times. Ability to handle finances: (1 point) Manages financial matters independently (budgets, writes checks, pays rent and bills, goes to bank); collects and keeps track of income. Total score: 8 points 8 = High function, independent 0 = Low function, dependent Tobacco Use Screening: The patient uses tobacco every day. The patient uses tobacco within 30 minutes of waking up. The patient has been smoking or using tobacco for thirty years or more. Patient was advised to quit smoking and/or using tobacco. Discussion with patient included: - Quitting smoking or tobacco use is one of the most important things you can do to protect and improve your health and [place] has the resources to support you. - Set a quit date when you are ready to quit. - Get support from your family and friends. - Review any past quit attempts- What helped? What didn't? - On the day you plan to quit, get rid of all cigarettes and tobacco products from your home, car or work. - Using a combination of behavioral counseling or other support strategies and FDA-approved cessation medications is the most effective way to ensure success in quitting. Patient was offered Behavioral Counseling and other support strategies to assist with quitting. Discussion with patient included: - Behavioral counseling or other support strategies greatly increases your chances of successfully quitting smoking or tobacco use by helping you develop a quit plan and providing support and other strategies to make behavioral changes to help you quit. - [place] has a number of behavioral counseling options to help you with quitting, including: * Provide information about the facility smoking or tobacco use treatment options or clinics * [place]'s national quitline, 9-656-XYUF-VET, with counseling available Friday-Friday The patient was not interested in receiving additional information about how to use the treatment options discussed. Patient was offered FDA-approved cessation medications. Discussion with patient included: - Medications for Nicotine replacement therapy such as the patch, gum or lozenge, and other medications such as varenicline or bupropion, can play an important role in the initial weeks and months after you quit smoking or tobacco use. - Medications help with cravings and withdrawal symptoms and they greatly increase your chances of successfully quitting. The patient was not interested in a prescription for tobacco cessation medications. /deja/ MAGDIEL OSORIO LPN LICENSED PRACTIAL NURSE Signed: 08/18/2023 14:[address] [facility]
== END 2024-04-13 15:26 | disposition home or self-care (01) ==
LOC: ANHIMG 15:27
PROVIDERS: PCP Family Medicine; Visit Provider Family Medicine
DX: Z12.2 Encounter for screening for malignant neoplasm of respiratory organs (principal); F17.210 Nicotine dependence, cigarettes, uncomplicated
CPT/HCPCS: 71271

== ENCOUNTER 2024-05-05 11:30 | Outpatient (CLI) | payer MEDICARE, OTHER, SELFPAY ==
[2024-05-05 12:29] LABS: Influenza A QL RT-PCR Positive (Negative); Influenza B QL RT-PCR Negative (Negative); RSV RNA, RT-PCR Negative (Negative); SARS-CoV-2 RNA PCR Negative (Negative)
--- OUTSIDE RECORDS SUMMARY | 2024-05-05 13:16 | XMS_ITS | Clinical Summary ---
Author Organization [facility] Address [address] [place] [address] Care Team Providers Care Medical Records Field Technician Name Role Phone Carlos A Cantu MD Primary Care Provider [phone] Allergies No known active allergies Medications traMADol (ULTRAM) 50 MG tabletIndications :Acute Pain < 7 Day Supply Take 2 tablets (100 mg total) by mouth every 6 (six) hours as needed for Pain. Indications: Acute Pain < 7 Day Supply 20 tablet 05/16/19 24 Active dexamethasone (DECADRON) 4 MG tabletIndications :Obstructive hydrocephalus ([facility]Aqueduct al stenosis ([facility]) Take 1 tablet (4 mg total) by mouth see administration instructions. 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 No 05/14/2023 Sex and Gender [...] of 2 - PCV) 1953 PHQ-2 (Physician [place]) 1959 Hepatitis C 1965 Lung Cancer Screening 1997 Annual Medicare Wellness Visit 2012 Zoster Vaccines (2 of 3) 03/03/2013 01/06/2013 RSV Immunization or 60+ Years (1 - 1-dose 75+ series) 2022 COVID-19 Vaccine ( season) 2023 11/28/2022, 12/10/2021, 06/14/2021, Additional history exists Influenza Adult (#1) 2023 11/01/2020, 11/02/2019, 11/18/2018, Additional history exists PHQ-2 (Phys[facility] [place]) 03/03/2024 DTaP, Tdap and Td Vaccines (2 [...] Maisha Rubi, RN Insurance MEDICARE [facility] Advance Directives * Full Code (Latest Code Status on File) Date Activated Date Inactivated Comments 05/14/2023 6:18 PM 05/16/2023 2:47 PM Care Teams Medical Records Field Technician Relationship Specialty Start Date End Date Carlos A Cantu MD [address] [facility] [address] [place] [address] PCP - General FAMILY PRACTICE 03/11/23
--- OUTSIDE RECORDS SUMMARY | 2024-05-05 13:16 | XMS_ITS | Continuity of Care Document ---
Author Name [facility] Organization [facility] Care Team Providers Care Outreach Representative Name Role Phone [facility] Unavailable Unavailable Problems Combined list of problems from [facility] facilities. It does not include entries that were removed or entered in error. Problem Status Onset Date Problem Type Date of Resolution Comments Source Allergic Rhinitis ([facility] [id number]) Active Condition [facility] Back pain Active Condition [facility] Benign prostatic hyperplasia Active Condition [facility] Hearing loss Active Condition [facility] History of varicose veins Active Condition [facility] Hyperlipidemia Active Condition [facility] Pain of left hand Active Condition [facility] Tobacco use Active Condition [facility] Diagnosis: ICD-10-CM Z13.9 Encounter for screening, unspecified Active Diagnosis [facility] Diagnosis: ICD-10-CM G91.1 Obstructive hydrocephalus Active Diagnosis [facility] Diagnosis: ICD-10-CM Z13.5 Encounter for screening for eye and ear disorders Active Diagnosis [facility] Medications Combined list of outpatient medications from [facility] facilities.Medications provided include 1) outpatient medications from the last 15 months, and 2) patient-reported medications. Medication Details Route Status Patient Instructions Prescription Expires Prescription Number Last Dispense Date Ordering Provider Order Date Order Qty Source DEXAMETHASO NE (DEXAMETHAS ONE), 4MG, TABLET, ORAL, [facility] [employer] 100 ea. BOTTLE Cancele d [id number] : 2023 0 Pharmac y Data Transac tion Service Facilit y LOPERAMIDE HCL 2MG CAP TAKE ONE CAPSULE BY MOUTH ONCE A DAY NEEDED FOR DIARRHEA ORAL ACTIVE 08/18/2024 [id number] Cassandra KOROMA 2023 90 [facility] TAMSULOSIN HCL 0.4MG CAP TAKE 1 CAPSULE BY MOUTH EVERY EVENING ORAL ACTIVE Cassandra KOROMA 2023 [facility] TRAMADOL HCL (tramadol HCl), 50 MG, TABLET, ORAL, AMNEAL PHARMACE, 500 ea. BOTTLE Active [id number] 2023 20 Pharmac y Data Transac tion Service Facilit y Allergies, Adverse Reactions, Alerts Combined list of allergies from Department of Defense and Veterans Affairs facilities. It does not include entries that were removed or entered in error. Substance Category Reaction Severity Reaction type Status Date Reported Comments Source No Known Allergies Drug allergy (disorder) active 05/15/2015 [employer] Yonis LIN ([facility]) Immunizations Combined list of available immunizations from the Department of [facility] and [facility] facilities. Immunization Series Date Given Administered By Site Reaction Lot Number CVX Code Drug Certified Art Therapist Status Comments Source COVID-19 (PFIZER), MRNA, LNP-S, PF, JENI-SUCROSE, 30 MCG/0.3 ML (AGES 12+ YEARS) 1 2022 309 complet ed [facility] INFLUENZA, HIGH-DOSE, QUADRIVALENT, PF 1 2022 197 complet ed [facility] COVID-19 (PFIZER), MRNA, LNP-S, BIVALENT, PF, 30 MCG/0.3 ML DOSE 4 2021 300 complet ed [facility] INFLUENZA, HIGH-DOSE, QUADRIVALENT, PF 1 2021 197 complet ed [facility] COVID-19 (MODERNA), MRNA, LNP-S, PF, 100 MCG/0.5ML DOSE OR 50 MCG/0.25ML DOSE 4 2021 207 complet ed MOD; [id number]; 2 [facility] COVID-19, mRNA, LNP-S, PF, 30 mcg/0.3 mL dose 2020 [facility] [employer] (PFR) Not Given COVID-19, mRNA, LNP-S, PF, 30 mcg/0.3 mL dose DoD COVID-19 (PFIZER), MRNA, LNP-S, PF, 30 MCG/0.3 ML DOSE 3 2020 208 complet ed [facility] influenza, high-dose, quadrivalent 2020 [facility], () Not Given influenza , high-dose , quadrival ent DoD INFLUENZA, HIGH-DOSE, QUADRIVALENT, PF 1 2020 197 complet ed [facility] INFLUENZA, UNSPECIFIED FORMULATION 2020 88 complet ed [facility] COVID-19 ([employer]), MRNA, LNP-S, PF, 30 MCG/0.3 ML DOSE 2 2020 208 complet ed [facility] COVID-19 ([employer]), MRNA, LNP-S, PF, 30 MCG/0.3 ML DOSE 1 2020 208 complet ed [facility] influenza, high-dose, quadrivalent 2019 [facility], () Not Given influenza , high-dose , quadrival ent DoD INFLUENZA, HIGH-DOSE, QUADRIVALENT, PF 1 2019 197 complet ed [facility] INFLUENZA, UNSPECIFIED FORMULATION 2019 88 complet [facility] Influenza, high dose seasonal 2018 ALUL, () Not Given Influenza , high dose seasonal DoD INFLUENZA, HIGH-DOSE, TRIVALENT, PF 1 2018 135 complet ed [facility] TDAP 2018 115 complet ed Right Deltoid [facility] INFLUENZA, HIGH-DOSE, TRIVALENT, PF 1 2017 135 complet ed [facility] Influenza, high dose seasonal 2016 ALUL, () Not Given Influenza , high dose seasonal DoD INFLUENZA, HIGH-DOSE, TRIVALENT, PF 1 2016 135 complet ed [facility] Influenza, high dose seasonal 2015 AL[facility], () Not Given Influenza , high dose seasonal DoD INFLUENZA, HIGH-DOSE, TRIVALENT, PF 1 2015 135 complet ed [facility] INFLUENZA, HIGH-DOSE, TRIVALENT, PF 1 2014 135 complet ed [facility] ZOSTER LIVE 1 2012 121 complet ed [facility] N INFLUENZA, SPLIT VIRUS, TRIVALENT, PRESERVATIVE 1 2012 141 complet ed [facility] Vital Signs Combined list of inpatient and outpatient Vital Signs from Department of [facility] and [facility], ranging from 12 months to all on record, depending upon the facility. Vital Sign Value Date Comments Source SYSTOLIC BLOOD PRESSURE 133 08/18/2023 14:24:15 [facility] DIASTOLIC BLOOD PRESSURE 71 08/18/2023 14:24:15 [facility] PULSE OXIMETRY 95 08/18/2023 14:24:15 [facility] WEIGHT 184.6 08/18/2023 14:24:15 [facility] BMI 27 kg/m2 08/18/2023 14:24:15 [facility] PAIN 0 08/18/2023 14:24:15 . [facility] HEIGHT 70 08/18/2023 14:24:15 [facility] TEMPERATURE 97.7 08/18/2023 14:24:15 [facility] PULSE 69 08/18/2023 14:24:15 [facility] RESPIRATION 18 08/18/2023 14:24:15 [facility] Encounters Combined list of: 1) Encounters from Department of Veterans Affairs facilities going backup to the last 18 months, not all VA inpatient encounters are included; 2) Encounters from the Department of Defense facilities going backup to 280 months. Location Location Details Encounter Type Encounter Number Reason For Visit Attending Provider ADM Date DC Date Status Disposition Source [facility] Outpatient Encounter [id number] 11/14 [facility] Outpatient Encounter [id number] 11/28 [facility] Outpatient Encounter [id number] 04/10 [facility] Outpatient Encounter [id number] JOILDA A 08/11 [facility] FUNDUS PHOTOGRAPH Y W/I&R [id number] Diagnos is: ICD-10- CM Z13.5 Encount er for screeni ng for eye and ear disorde rs BENJAMIN VALLECILLO 08/17 [facility] OFF[facility] O/P EST LOW 20 MIN [id number] Diagnos is: ICD-10- CM G91.1 Obstruc tive hydroce phalus DEPAULO,PORTER DONGE 08/17 [facility] Outpatient Encounter [id number] Diagnos is: ICD-10- CM Z13.9 Encount er for screeni ng, unspeci MANE Coy 08/17 [facility] Social History Combined list of available smoking, tobacco, and other social history from Department of Defense and [facility] facilities. Social History Type Response Date Comment Sourc e Tobacco smoking status NHIS VA-TOBACCO USER EVERY DAY 08/18/2023 [facility] History of tobacco use VA-TOBACCO USE WI 30 MIN OF WAKEUP 08/18/2023 [facility] History of tobacco use VA-TOBACCO USER E VERY DAY 06/05/2022 [facility] History of tobacco use VA-TOBACCO USER E VERY DAY 06/13/2021 [facility] History of tobacco use [place]-TOBACCO USE CO UNSEL NO 08/05/2019 [facility] History of tobacco use [place]-TOBACCO USE CO UNSEL NO 07/02/2018 [facility] This section is an empty social history section. [facility] Plan of Care List of future care activities from Department of [facility] facilities. Additional future care activities may be listed in the Assessment and Plan section. Date/Time Care Activity Care Activity Detail Facili ty 08/17/2024 AMBULATORY - MEDICINE AMBULATORY - MEDICI NE [facility]
== END 2024-05-05 11:31 | disposition home or self-care (01) ==
LOC: ANHLAB 11:32
PROVIDERS: PCP Family Medicine; Visit Provider Family Medicine
DX: J06.9 Acute upper respiratory infection, unspecified (principal); Z20.822 Contact with and (suspected) exposure to COVID-19
CPT/HCPCS: 87637

== ENCOUNTER 2024-06-28 14:08 | Outpatient (CLI) | payer MEDICARE, OTHER, SELFPAY ==
--- NOTE | ~2024-06-28 | XR_ITS ---
Right Shoulder Technique: AP and axillary views were obtained. Clinical History: Neuralgia Findings: No fracture or dislocation is seen. Osseous alignment is anatomic. The glenohumeral and acr omioclavicular joint spaces are preserved. Soft tissues are unremarkable. Impression: Unremarkable right shoulder radiographs. Reviewed, dictated and finalized at [facility]. Impression: Unremarkable right shoulder radiographs.
--- OUTSIDE RECORDS SUMMARY | 2024-06-28 16:20 | XMS_ITS | Continuity of Care Document ---
Author Name [facility] Organization [facility] Care Team Providers Care Document Imaging Specialist Name Role Phone [facility] Unavailable Unavailable Problems Combined list of problems from [facility] facilities. It does not include entries that were removed or entered in error. Problem Status Onset Date Problem Type Date of Resolution Comments Source Allergic Rhinitis ([facility] [id number]) Active Condition [facility] Back pain Active Condition [facility] Benign prostatic hyperplasia Active Condition [facility] Hearing loss Active Condition [facility] History of varicose veins Active Condition [facility] Hyperlipidemia Active Condition [facility] Pain of left hand Active Condition [facility] Tobacco use Active Condition [facility] Diagnosis: ICD-10-CM Z13.9 Encounter for screening, unspecified Active Diagnosis [facility] Diagnosis: ICD-10-CM G91.1 Obstructive hydrocephalus Active Diagnosis [facility] Diagnosis: ICD-10-CM Z13.5 Encounter for screening for eye and ear disorders Active Diagnosis [facility] Medications Combined list of outpatient medications from [facility] facilities.Medications provided include 1) outpatient medications from the last 15 months, and 2) patient-reported medications. Medication Details Route Status Patient Instructions Prescription Expires Prescription Number Last Dispense Date Ordering Provider Order Date Order Qty Source DEXAMETHASO NE (DEXAMETHAS ONE), 4MG, TABLET, ORAL, [facility] 100 ea. BOTTLE Cancele d [id number] : 2023 0 Pharmac y Data Transac tion Service Facilit y LOPERAMIDE HCL 2MG CAP TAKE ONE CAPSULE BY MOUTH ONCE A DAY NEEDED FOR DIARRHEA ORAL ACTIVE 08/18/2024 [id number] Cassandra KOROMA 2023 90 [facility] TAMSULOSIN HCL 0.4MG CAP TAKE 1 CAPSULE BY MOUTH EVERY EVENING ORAL ACTIVE Cassandra KOROMA 2023 [facility] TRAMADOL HCL (tramadol HCl), 50 MG, TABLET, ORAL, AMNEAL PHARMACE, 500 ea. BOTTLE Active [id number] 2023 20 Pharmac y Data Transac tion Service Facilit y Allergies, Adverse Reactions, Alerts Combined list of allergies from Department of Defense and Veterans Affairs facilities. It does not include entries that were removed or entered in error. Substance Category Reaction Severity Reaction type Status Date Reported Comments Source No Known Allergies Drug allergy (disorder) active 05/15/2015 [employer] Yonis LIN ([facility]) Immunizations Combined list of available immunizations from the Department of [facility] and [facility] facilities. Immunization Series Date Given Administered By Site Reaction Lot Number CVX Code Drug Flight Kitchen Manager Status Comments Source COVID-19 (PFIZER), MRNA, LNP-S, PF, JENI-SUCROSE, 30 MCG/0.3 ML (AGES 12+ YEARS) 1 2022 309 complet ed HISTORICA L INFORMATI ON - FROM OTHER [facility] N INFLUENZA, HIGH-DOSE, QUADRIVALENT, PF 1 2022 197 complet ed HISTORICA L INFORMATI ON - FROM OTHER [facility] COVID-19 (PFIZER), MRNA, LNP-S, BIVALENT, PF, 30 MCG/0.3 ML DOSE 4 2021 300 complet ed HISTORICA L INFORMATI ON - FROM OTHER [facility], [facility] INFLUENZA, HIGH-DOSE, QUADRIVALENT, PF 1 2021 197 complet ed HISTORICA L INFORMATI ON - [facility] OTHER [facility] COVID-19 (MODERNA), MRNA, LNP-S, PF, 100 MCG/0.5ML DOSE OR 50 MCG/0.25ML DOSE 4 2021 207 complet ed MOD; [id number]; 2 [facility] COVID-19, mRNA, LNP-S, PF, 30 mcg/0.3 mL dose 2020 [facility] [place] (PFR) Not Given COVID-19, mRNA, LNP-S, PF, 30 mcg/0.3 mL dose DoD COVID-19 (PFIZER), MRNA, LNP-S, PF, 30 MCG/0.3 ML DOSE 3 2020 208 complet ed [facility] influenza, high-dose, quadrivalent 2020 [facility], () Not Given influenza , high-dose , quadrival ent DoD INFLUENZA, HIGH-DOSE, QUADRIVALENT, PF 1 2020 197 complet ed HISTORICA L INFORMATI ON - FROM OTHER REGISTRY, [facility] INFLUENZA, UNSPECIFIED FORMULATION 2020 88 complet ed [facility] COVID-19 ([employer]), MRNA, LNP-S, PF, 30 MCG/0.3 ML DOSE 2 2020 208 complet ed [facility] COVID-19 ([employer]), MRNA, LNP-S, PF, 30 MCG/0.3 ML DOSE 1 2020 208 complet ed [facility] influenza, high-dose, quadrivalent 2019 ALUL, () Not Given influenza , high-dose , quadrival ent DoD INFLUENZA, HIGH-DOSE, QUADRIVALENT, PF 1 2019 197 complet ed HISTORICA L INFORMATI ON - FROM OTHER REGISTRY, [facility] N INFLUENZA, UNSPECIFIED FORMULATION 2019 88 complet ed [facility] Influenza, high dose seasonal 2018 ALUL, () Not Given Influenza , high dose seasonal DoD INFLUENZA, HIGH-DOSE, TRIVALENT, PF 1 2018 135 complet ed HISTORICA L INFORMATI ON - FROM OTHER REGISTRY, [facility] TDAP 2018 115 complet ed Right Deltoid [facility] INFLUENZA, HIGH-DOSE, TRIVALENT, PF 1 2017 135 complet ed HISTORICA L INFORMATI ON - FROM OTHER REGISTRY, [facility] Influenza, high dose seasonal 2016 ALUL, () Not Given Influenza , high dose seasonal DoD INFLUENZA, HIGH-DOSE, TRIVALENT, PF 1 2016 135 complet ed HISTORICA L INFORMATI ON - FROM OTHER REGISTRY, [facility] N Influenza, high dose seasonal 2015 ALUL, () Not Given Influenza , high dose seasonal DoD INFLUENZA, HIGH-DOSE, TRIVALENT, PF 1 2015 135 complet ed HISTORICA L INFORMATI ON - FROM OTHER REGISTRY, [facility] N INFLUENZA, HIGH-DOSE, TRIVALENT, PF 1 2014 135 complet ed HISTORICA L INFORMATI ON - FROM OTHER REGISTRY, [facility] N ZOSTER LIVE 1 2012 121 complet ed HISTORICA L INFORMATI ON - FROM OTHER REGISTRY, [facility] N INFLUENZA, SPLIT VIRUS, TRIVALENT, PRESERVATIVE 1 2012 141 complet ed HISTORICA L INFORMATI ON - FROM OTHER REGISTRY, [facility] N Vital Signs Combined list of inpatient and outpatient Vital Signs from Department of Defense and Veterans Affairs, ranging from 12 months to all on record, depending upon the facility. Vital Sign Value Date Comments Source SYSTOLIC BLOOD PRESSURE 133 08/18/2023 14:24:15 [facility] DIASTOLIC BLOOD PRESSURE 71 08/18/2023 14:24:15 [facility] PULSE OXIMETRY 95 08/18/2023 14:24:15 S [facility] ON [facility] OF [facility] WEIGHT 184.6 08/18/2023 14:24:15 [facility] BMI 27 kg/m2 08/18/2023 14:24:15 [facility] PAIN 0 08/18/2023 14:24:15 [facility] HEIGHT 70 08/18/2023 14:24:15 [facility] TEMPERATURE 97.7 08/18/2023 14:24:15 [facility] PULSE 69 08/18/2023 14:24:15 Peter [facility] 18 08/18/2023 14:24:15 [facility] Encounters Combined list of: 1) Encounters from Department of Veterans Affairs facilities going backup to the last 18 months, not all [place] inpatient encounters are included; 2) Encounters from the Department of [facility] facilities going backup to 280 months. Location Location Details Encounter Type Encounter Number Reason For Visit Attending Provider ADM Date DC Date Status Disposition Source [facility] Outpatient Encounter [id number] 04/10 [facility] Outpatient Encounter [id number] ILDA OSORIO 08/11 [facility] FUNDUS PHOTOGRAPH Y W/I&R [id number] Diagnos is: ICD-10- CM Z13.5 Encount er for screeni ng for eye and ear disorde rs VALLECILLO, BENJAMIN 08/17 [facility] OFFICE O/P EST LOW 20 MIN [id number] Diagnos is: ICD-10- CM G91.1 Obstruc tive hydroce phalus DEPAULO,PORTER ZANNE 08/17 [facility] Outpatient Encounter [id number] Diagnos is: ICD-10- CM Z13.9 Encount er for screeni ng, unspeci MANE Coy 08/17 [facility] Social History Combined list of available smoking, tobacco, and other social history from Department of Defense and Veterans Affairs facilities. Social History Type Response Date Comment Sourc e Tobacco smoking status NHIS VA-TOBACCO USER EVERY DAY 08/18/2023 [facility] History of tobacco use VA-TOBACCO USE WI 30 MIN OF WAKEUP 08/18/2023 [facility] History of tobacco use VA-TOBACCO USER E VERY DAY 06/05/2022 [facility] History of tobacco use VA-TOBACCO USER E VERY DAY 06/13/2021 [facility] History of tobacco use VA-TOBACCO USE CO UNSEL NO 08/05/2019 [facility] History of tobacco use VA-TOBACCO USE CO UNSEL NO 07/02/2018 [facility] This section is an empty social history section. [facility] Plan of Care List of future care activities from Department of Veterans Affairs facilities. Additional future care activities may be listed in the Assessment and Plan section. Date/Time Care Activity Care Activity Detail Facili ty 08/17/2024 AMBULATORY - MEDICINE AMBULATORY - MEDICI NE [facility]
--- OUTSIDE RECORDS SUMMARY | 2024-06-28 16:20 | XMS_ITS | Clinical Summary ---
Author Organization [facility] Address [address] [place] [address] Care Team Providers Care Bag Tester Name Role Phone Carlos A Cantu MD Primary Care Provider [phone] Allergies No known active allergies Medications traMADol (ULTRAM) 50 MG tabletIndications :Acute Pain < 7 Day Supply Take 2 tablets (100 mg total) by mouth every 6 (six) hours as needed for Pain. Indications: Acute Pain < 7 Day Supply 20 tablet 05/16/19 24 Active dexamethasone (DECADRON) 4 MG tabletIndications :Obstructive hydrocephalus ([facility]),Aqueduct al stenosis ([facility]) Take 1 tablet (4 mg total) by mouth see administration instructions. 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 No 05/14/2023 Sex and Gender [...] Health Maintenance Due Date Last Done Comments Hepatitis C 1963 Pneumococcal Vaccine: 50+ Years (1 of 2 - PCV) 1966 Lung Cancer Screening 1997 Annual Medicare Wellness Visit 2012 Zoster Vaccines (2 of 3) 03/03/2013 01/06/2013 RSV Immunization or 60+ Years (1 - 1-dose 75+ series) 2022 COVID-19 Vaccine ( season) 2023 11/28/2022, 12/10/2021, 06/14/2021, Additional history exists PHQ-2 (Physician [place]) 03/03/2024 DTaP, Tdap and Td Vaccines (2 [...] Lifestyle No Maisha Rubi, RN Insurance MEDICARE [employer] Advance Directives * Full Code (Latest Code Status on File) Date Activated Date Inactivated Comments 05/14/2023 6:18 PM 05/16/2023 2:47 PM Care Teams Bag Tester Relationship Specialty Start Date End Date Carlos A Cantu MD [address] [place] [address] PCP - General FAMILY PRACTICE 03/11/23
== END 2024-06-28 14:09 | disposition home or self-care (01) ==
PROVIDERS: PCP Family Medicine; Visit Provider Physician Assistant Medical
DX: M79.2 Neuralgia and neuritis, unspecified (principal)
CPT/HCPCS: 73030

== ENCOUNTER 2024-09-06 08:33 | Outpatient (CLI) | payer MEDICARE, OTHER, SELFPAY ==
--- OUTSIDE RECORDS SUMMARY | 2024-09-06 08:46 | XMS_ITS | Clinical Summary ---
Author Organization [facility] Address [address] [place] [address] Care Team Providers Care Senior Electronics Design Engineer Name Role Phone Carlos A Cantu MD Primary Care Provider [phone] Allergies No known active allergies Medications traMADol (ULTRAM) 50 MG tabletIndications :Acute Pain < 7 Day Supply Take 2 tablets (100 mg total) by mouth every 6 (six) hours as needed for Pain. Indications: Acute Pain < 7 Day Supply 20 tablet 05/16/19 24 Active dexamethasone (DECADRON) 4 MG tabletIndications :Obstructive hydrocephalus ([facility]),Aqueduct al stenosis ([facility]) Take 1 tablet (4 mg total) by mouth see administration instructions. 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 No 05/14/2023 Sex and Gender [...] 10:15 AM CDT Height 177.8 cm (5' 10) 08/19/2023 10:15 AM CDT Body Mass Index 25.25 08/19/2023 10:15 AM CDT Plan of Treatment Health Maintenance Due Date Last Done Comments Hepatitis C 1963 Pneumococcal Vaccine: 50+ Years (1 of 2 - PCV) 1966 Annual Medicare Wellness Visit 2012 Zoster Vaccines (2 of 3) 03/03/2013 01/06/2013 RSV Immunization or 60+ Years (1 - 1-dose 75+ series) 2022 COVID-19 Vaccine ( season) 2023 11/28/2022, 12/10/2021, 06/14/2021, Additional history exists PHQ-2 (Physician [place]) 03/03/2024 DTaP, Tdap and Td Vaccines (2 [...] 6:18 PM 05/16/2023 2:47 PM Care Teams Senior Electronics Design Engineer Relationship Specialty Start Date End Date Carlos A Cantu MD [address] [place] [address] PCP - General FAMILY PRACTICE 03/11/23
--- OUTSIDE RECORDS SUMMARY | 2024-09-06 08:46 | XMS_ITS | Encounter Summary ---
Author Name [facility] Organization [facility] Address [address] [place] [id number] Care Team Providers Care Genomics Scientist Name Role Phone BRENDA KOROMA Primary Care [...] PART A Mar 03, 2012 PART A [id number] DEE DEE [place] PATIENT MEDICARE (WNR) MEDICARE (M) PART B Mar 03, 2012 PART B [id number] DEE DEE [place] PATIENT -FO R-LIFE TRICA RE FOR LIFE WNR Mar 03, 2017 FOR LIFE [id number] [phone] DEE DEE [place] PATIENT -FO R-LIFE [place]ICA RE FOR LIFE WNR Jun 13, 2014 FOR LIFE [id number] [phone] DEE DEE [place] PATIENT Selected Encounter This section includes the information on record at [place] for the Encounter. Date/Time Encounter Type Encounter Description Reason Provider Source Aug 17, 2024 02:00 PM OFFICE O/P EST MOD 30 MIN PRIMARY CARE/MEDICINE ICD-10-CM Z00.00 Encntr for general adult medical exam w/o abnormal findings MINNIE KOROMA Encounter Template Text not used by [place] Assessments - Encounter Diagnoses This section includes the primary and secondary diagnoses documented for the Encounter. Date/Time Primary/Secondary Diagnosis Diagnosis Name Provider Source Aug 17, 2024 02:29 PM PRIMARY Encntr for general adult medical exam w/o abnormal findings MINNIE KOROMA Peter [facility] Aug 17, 2024 02:29 PM SECONDARY Benign prostatic hyperplasia with lower urinary tract symp MINNIE KOROMA [facility] Aug 17, 2024 02:29 PM SECONDARY Diarrhea, unspecified MINNIE KOROMA [facility] Aug 17, 2024 02:29 PM SECONDARY Hydrocephalus, unspecified [facility] Aug 17, 2024 02:29 PM SECONDARY Mixed hyperlipidemia MINNIE KOROMA [facility] Aug 17, 2024 02:29 PM SECONDARY Tobacco use MINNIE KOROMA [facility] Aug 17, 2024 02:29 PM SECONDARY Unspecified hearing loss, bilateral TIFFANIEMADINAMINNIE E [facility] Vital Signs: All taken on the encounter date This section contains inpatient and outpatient Vital Signs collected on the date of the Encounter. Date/Time Temperature Pulse Blood Pressure Respiratory Rate SP02 Pain Height Weight Body Mass Index Source Aug 17, 2024 01:58 PM 97.7 F 83 /min 133/67 mm[Hg] 18 /min 96 % 0 70 in 198.8 lb 29 [facility] Social History: Smoking Status (Most current) and Tobacco Use (All prior to encounter date) This section includes the most current, and the historical, smoking and tobacco- related health factors from the [place] facility where the Encounter took place. Current Smoking Status This section includes the most current smoking, or tobacco-related health factor, from the [place] facility where the Encounter took place. Date/Time Current Smoking Status Comment Lenora ity Aug 17, 2024 02:00 PM VA-TOBACCO USE FOR MARCIA CIGARETTES [facility] Tobacco Use History This section includes a history of the smoking, or tobacco-related health factors, that were collected on or before the date of the Encounter. The data comes from the [place] facility where the Encounter took place. Date/Time Smoking Status/Tobacco Use Comment F acility Aug 17, 2024 02:00 PM VA-TOBACCO USE FOR MARCIA CIGARETTES . [facility] Aug 18, 2023 02:30 PM VA-TOBACCO USE [address] [facility] Aug 18, 2023 02:30 PM VA-TOBACCO USE ADVICE . [facility] Aug 18, 2023 02:30 PM VA-TOBACCO USE R[place] [employer] CAPTAIN NO [facility] Aug 18, 2023 02:30 PM VA-TOBACCO USE MED NO [facility]. [facility] Aug 18, 2023 02:30 PM VA-TOBACCO USE WI 30 MIN OF WAKEUP . [facility] Aug 18, 2023 02:30 PM VA-TOBACCO USER EVERY DAY . [facility] Aug 05, 2019 11:54 AM VA-TOBACCO USE 30 YEARS OR MORE . [facility] Aug 05, 2019 11:54 AM VA-TOBACCO USE ADVICE . 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 [facility] Aug 05, 2019 11:54 AM VA-TOBACCO USE MED NO . [facility] Aug 05, 2019 11:54 AM VA-TOBACCO USE WI 30 MIN OF WAKEUP . [facility] Aug 05, 2019 11:54 AM VA-TOBACCO USER EVERY DAY . [facility] July 02, 2018 10:17 AM VA-TOBACCO USE 30 YEARS OR MORE . [facility] July 02, 2018 10:17 AM VA-TOBACCO USE ADVICE . [facility] July 02, 2018 10:17 AM VA-TOBACCO USE RIVER BOAT CAPTAIN NO . [facility] July 02, 2018 10:17 AM VA-TOBACCO USE MED NO . [facility] July 02, 2018 10:17 AM VA-TOBACCO USE WI 30 MIN OF WAKEUP . [facility] July 02, 2018 10:17 AM VA-TOBACCO USER EVERY DAY [facility] Encounter Notes: All associated encounter notes This section contains the clinical notes associated to the Encounter. Date/Time Encounter Note(s) Provider Source Aug 17, 2024 02:08 PM PRIMARY CARE NOTE: LOCAL TITLE: PRIMARY CARE PROVIDER ESTABLISHED VISIT ST [place] TITLE: PRIMARY CARE NOTE DATE OF NOTE: AUG 17, 2024@14:08 ENTRY DATE: AUG 17, 2024@14:08:06 AUTHOR: BRENDA KOROMA COSIGNER: URGENCY: STATUS: COMPLETED Patient is 79 and WHITE Self Identified Gender - NONE FOUND Reason for visit:Scheduled follow-up Chief Complaint: 79yo male here for f/u visit, last visit August 2023 NonVA Providers:Dr Tao at [facility]: [facility]--no longer seeing History of Present Illness: Here for annual visit, reports no new concerns at this time. Reports since last year his balance issues have resolved status post MRI guided stereotactic endoscopic third ventriculostomy for hydrocephalus. No longer seeing nonVA NSGY. Hx of chronic diarrhea for which he uses loperamide 2mg in AM with good results. --reports hx of colonoscopy about 3 years ago w/o significant issues. Problem List: 1) Pain of left hand 2) Benign prostatic hyperplasia 3) Hyperlipidemia 4) Hearing loss 5) Allergic Rhinitis ([facility] [id number]) 6) History of varicose veins 7) Back pain 8) Tobacco use Social History: NICOTINE: reports quit smoking in Feb 2024; hx of smoking 1ppd since he was around age 21. ILLICIT DRUGS: none ALCOHOL: 2 beers, 3-4 times/week EXERCISE/DIET: walking daily about 1/2 mile [place] STATUS: , living alone; grandson spends a lot of time with him Medication Review: The essential med list for review which includes the patient's active VA prescriptions and if applicable, remote VA prescriptions, non-VA prescriptions, and discontinued VA prescriptions within the last 90 days and known allergies including local and remote allergies have been reviewed. Allergies:Patient has answered NKA Active and Recently Outpatient Medications (excluding Supplies): Active Outpatient Medications Status 1) LOPERAMIDE HCL 2MG CAP TAKE ONE CAPSULE BY MOUTH ONCE A DAY ACTIVE NEEDED Indication: FOR DIARRHEA Active Non-VA Medications Status 1) Non-VA TAMSULOSIN HCL 0.4MG CAP 0.4MG BY MOUTH EVERY EVENING ACTIVE Indication: FOR BENIGN PROSTATIC HYPERPLASIA 2 Total Medications Physical Exam VITALS (most recent, as listed in the electronic record): B/P: 133/67 (08/17/2024 13:58) Pulse: 83 (08/17/2024 13:58) Temperature: 97.7 F [36.5 C] (08/17/2024 13:58) Weight: 198.8 lb [90.17 kg] (08/17/2024 13:58) Height: 70 in [177.8 cm] (08/17/2024 13:58) BMI: 28.6 Pain: 0 (08/17/2024 13:58) (0-10 scale) General: WD, WN in NAD, pleasant affect Skin: no lesions or rashes noted. Neck: Supple, no cervical PRETTY. Lungs: CTA bilat, no W/R/R Heart: RRR, nl S1/S2, no murmurs. Abdomen: nondistended. Assessment/Plan: 1) Annual visit: routine labs done by nonVA PCP. Reports no significant issues. --CRCS: reports colonoscopy done about 3 years ago, does not plan on further screening. --LDCT: reports done with nonVA PCP in May 2024. 2) Hydrocephalus: improved after surgery May 2023. --no further issues with loss of balance. --f/u with NSGY PRN. 3) Chronic diarrhea: cont loperamide 2mg daily, med renewed. 4) HLD: lab monitored by nonVA PCP. --now controlled with diet/activity. 5) BPH: reports continued use of tamsulosin through nonVA PCP. 6) Hearing loss, bilateral: f/u with Audiology PRN. 7) Tobacco use: now in remission; reports quit smoking Feb 2024. --LDCT May 2024 with nonVA PCP, reports no issues. RTC: 1 year Time spent on date of visit including face to face time, data review, and chartin min CLINICAL REMINDERS COMPLETED Sexual Orientation - CP,L,N,P,PH,PS,S,U: The patient thinks of their sexual orientation as: Straight or Heterosexual Initial Lung Cancer Screen (Provider): Chest CT within 12 months outside of this [facility] that assesses pulmonary nodules. Patient is not a current candidate for the lung cancer screening program. Date of Chest CT May, ? Exact date is unknown Results: reports no issues [facility] DIGITAL DIVIDE CAPABILITY REMINDER: Patient is not interested in [facility] at this time. 'S RIGHT TO DECLINE STATEMENT [place] understands they have the right to decline the use of [employer] at any time without adverse affects on their continued access to healthcare. Eye Care At-Risk Screen - L,N,PH,U: Patient identified to be at risk for the following eye condition(s): MACULAR DEGENERATION: Macular Degeneration Risk Factors Information: Reminder Term: VA-AMD RISK FACTORS Encounter Diagnosis: 08/18/2023@14:30 Z72.0 (ICD-10-CM) Tobacco use rank: SECONDARY Prov. Narr. - Tobacco use ([facility] [id number]) Action: No Referral Ordered: Eye exam completed elsewhere by an [employer]oa Mill Operator or Director Of Early Childhood Exam Information: Date: August, ? Exact date is unknown Findings/Comment no issues /deja/ BRENDA KOROMA Staff Physician Signed: 08/17/2024 14:30 BRENDA KOROMA [facility] Aug 17, 2024 01:59 PM NURSING NOTE: LOCAL TITLE: V15 PACT FACE TO FACE NOTE [facility] TITLE: NURSING NOTE DATE OF NOTE: AUG 17, 2024@13:59 ENTRY DATE: AUG 17, 2024@13:59:20 AUTHOR: MAGDIEL OSORIO COSIGNER: URGENCY: STATUS: COMPLETED Provider Visit: Patient Identifiers : Full Name Date of Reason for visit: Established Follow-Up Mode of Arrival: Ambulatory Allergy Review: ALLERGIES/ADVERSE REACTIONS - NONE FOUND Allergy list reviewed and remains current. Recent Vital Signs: Temperature: 97.7 F [36.5 C] (08/17/2024 13:58) Pulse: 83 (08/17/2024 13:58) Respiration: 18 (08/17/2024 13:58) B/P: 133/67 (08/17/2024 13:58) Pain: 0 (08/17/2024 13:58) Wt: 198.8 lb [90.17 kg] (08/17/2024 13:58) Ht: 70 in [177.8 cm] (08/17/2024 13:58) BMI: 28.6 POX: 96% (08/17/2024 13:58) PERSONAL HEALTH INVENTORY Notes: No data available for PHI note titles PERSONAL HEALTH INVENTORY - MAP: No data available for PHI MAP What matters most to you in your life right now? -- [place]'s Response: grandson Would you like to discuss any personal problem, family problem, alcohol use, drug use, or a mental or emotional illness? No Contact provided Primary Care phone number and encouraged to call if any questions or concerns. Review that after hours nurse line [phone] and emergency room are available 23/09 for patient use. Contact verbalized good understanding. Suicide Screen - V: C-SSRS Screening [place] Suicide Severity Rating Scale (C-SSRS) screener 1. Over the past month, have you [...] required due to responses to other questions. Alcohol Use Screen (AUDIT-C) - V: Alcohol Screen: SCREEN FOR ALCOHOL (AUDIT-C) An [...] occasion in the past year? Never Depression Screening - V: Perform PHQ-2 A PHQ-2 screen was performed. The score was 0 which is a negative screen for depression. Over the past two weeks, how often have you been bothered by the following problems? 1. Little interest or pleasure in doing things Not at all 2. Feeling down, depressed, or hopeless Not at all Influenza Immunization - L,N,P,PH,U: The patient has received the seasonal influenza vaccine for the current season at another location. Documented: INFLUENZA, UNSPECIFIED FORMULATION Historical Date Administered: Dec 2023 Exact date unknown Outside Location: [facility] Information Source: FROM PATIENT'S RECALL Learning Assessment: - * This patient's learning ABILITIES, BARRIERS to learning, CULTURAL and RELIGION beliefs, and learning PREFERENCES were assessed. Following are findings of note: Patient reads well. Comment: with glasses LANGUAGE Patient reports that Indonesian is preferred language for healthcare. Patient reports learning preference is to refer to handouts. Herpes Zoster (Shingles) Vaccine - L,N,P,PH,U: The patient declines to receive the recommended dose of zoster (shingles) vaccine. Immunization: ZOSTER RECOMBINANT Refusal Reason: PATIENT DECISION Patient refuses all immunization(s) in the ZOSTER group Date Documented: 08/17/24 14:03 Pneumococcal Conjugate Vaccine (PCV15/PCV20/PCV21) - L,N,P,PH,U: Refuses PCV vaccine Immunization: PNEUMOCOCCAL CONJUGATE, UNSPECIFIED FORMULATION Refusal Reason: PATIENT DECISION Patient refuses all immunization(s) in the PneumoPCV group Date Documented: 08/17/24 14:04 Tobacco Use Screening - AT,DE,L,M,N,P,PH,PS,RT,S,U: The patient is a former cigarette smoker. Quit smoking LESS THAN 15 years. Year the patient quit smoking: Date: January, ? Exact date is unknown The patient states they smoked the following number of years: # of years: 60 Average number of packs/day over the entire time patient smoked: Packs/day: 1 The patient has never used other types of tobacco. COVID-19 Immunization-L,N,P,PH,U: Refused Pfizer Monovalent COVID-19 vaccine Immunization: COVID-19 (PFIZER), MRNA, LNP-S, PF, JENI-SUCROSE, 30 MCG/0.3 ML (AGES 12+ YEARS) Refusal Reason: PATIENT DECISION Patient refuses all immunization(s) in the COVID-19 group Date Documented: 08/17/24 14:05 /deja/ MAGDIEL OSORIO LPN LICENSED PRACTIAL NURSE Signed: 08/17/2024 14:06 MAGDIEL OSORIO [facility]
--- OUTSIDE RECORDS SUMMARY | 2024-09-06 08:46 | XMS_ITS | Continuity of Care Document ---
Author Name [facility] Organization [facility] Care Team Providers Care Middleware Architect Name Role Phone [facility] Unavailable Unavailable Problems Combined list of problems from [facility] facilities. It does not include entries that were removed or entered in error. Problem Status Onset Date Problem Type Date of Resolution Comments Source Allergic Rhinitis ([facility] [id number]) Active Condition [facility] Back pain Active Condition [facility] Benign prostatic hyperplasia Active Condition [facility] Hearing loss Active Condition [facility] History of varicose veins Active Condition [facility] Hyperlipidemia Active Condition [facility] Pain of left hand Active Condition [facility] Tobacco use Active Condition [facility] Diagnosis: ICD-10-CM Z00.00 Encntr for general adult medical exam w/o abnormal findings Active Diagnosis [facility] Diagnosis: ICD-10-CM Z13.9 Encounter for screening, unspecified Active Diagnosis [facility] Diagnosis: ICD-10-CM G91.1 Obstructive hydrocephalus Active Diagnosis [facility] Diagnosis: ICD-10-CM Z13.5 Encounter for screening for eye and ear disorders Active Diagnosis [facility] Medications Combined list of outpatient medications from [facility] facilities.Medications provided include 1) outpatient medications from the last 15 months, and 2) patient-reported medications. Medication Details Route Status Patient Instructions Prescription Expires Prescription Number Last Dispense Date Ordering Provider Order Date Order Qty Source LOPERAMIDE HCL 2MG CAP TAKE ONE CAPSULE BY MOUTH ONCE A DAY NEEDED FOR DIARRHEA ORAL ACTIVE 08/18/2025 [id number] Cassandra KOROMA 2024 90 [facility] LOPERAMIDE HCL 2MG CAP TAKE ONE CAPSULE BY MOUTH ONCE A DAY NEEDED FOR DIARRHEA ORAL DISCONT INUED 08/18/2024 [id number] DEPCassandra BOOKER 2023 90 [facility] TAMSULOSIN HCL 0.4MG CAP TAKE 1 CAPSULE BY MOUTH EVERY EVENING ORAL ACTIVE DEPAULO,S UZANNE 2023 [facility] Allergies, Adverse Reactions, Alerts Combined list of allergies from Department of Defense and [facility] facilities. It does not include entries that were removed or entered in error. Substance Category Reaction Severity Reaction type Status Date Reported Comments Source No Known Allergies Drug allergy (disorder) active 05/15/2015 [facility] Yonis LIN ([facility]) Immunizations Combined list of available immunizations from the Department of [facility] and [facility] facilities. Immunization Series Date Given Administered By Site Reaction Lot Number CVX Code Drug Clipper Automatic Status Comments Source INFLUENZA, UNSPECIFIED FORMULATION 2023 88 complet ed HISTORICA L INFORMATI ON - FROM PATIENT'S RECALL, [facility] COVID-19 (PFIZER), MRNA, LNP-S, PF, JENI-SUCROSE, 30 MCG/0.3 ML (AGES 12+ YEARS) 1 2022 309 complet ed HISTORICA L INFORMATI ON - FROM OTHER REGISTRY, [facility] INFLUENZA, HIGH-DOSE, QUADRIVALENT, PF 1 2022 197 complet ed HISTORICA L INFORMATI ON - FROM OTHER [facility], [facility] COVID-19 ([facility]), MRNA, LNP-S, BIVALENT, PF, 30 MCG/0.3 ML DOSE 4 2021 300 complet ed HISTORICA L INFORMATI ON - FROM OTHER REGISTRY, [facility] INFLUENZA, HIGH-DOSE, QUADRIVALENT, PF 1 2021 197 complet ed HISTORICA L INFORMATI ON - FROM OTHER REGISTRY, [facility] COVID-19 ([facility]ERNA), MRNA, LNP-S, PF, 100 MCG/0.5ML DOSE OR 50 MCG/0.25ML DOSE 4 2021 207 complet ed MOD; [id number]; 2 [facility] COVID-19 (PFIZER), MRNA, LNP-S, PF, 30 MCG/0.3 ML DOSE [address] [facility] COVID-19, mRNA, LNP-S, PF, 30 mcg/0.3 mL dose 2020 [employer] [place] (PFR) Not Given COVID-19, mRNA, LNP-S, PF, 30 mcg/0.3 mL dose DoD INFLUENZA, HIGH-DOSE, QUADRIVALENT, PF 1 2020 197 complet ed HISTORICA L INFORMATI ON - FROM OTHER REGISTRY, [facility] influenza, high-dose, quadrivalent 2020 [facility], () Not Given influenza , high-dose , quadrival ent DoD INFLUENZA, UNSPECIFIED FORMULATION [address] [facility] COVID-19 ([facility]), MRNA, LNP-S, PF, 30 MCG/0.3 ML DOSE 2 [address] [facility] COVID-19 (PFIZER), MRNA, LNP-S, PF, 30 MCG/0.3 ML DOSE 1 [address] [facility] INFLUENZA, HIGH-DOSE, QUADRIVALENT, PF 1 2019 197 complet ed HISTORICA L INFORMATI ON - FROM OTHER REGISTRY, [facility] influenza, high-dose, quadrivalent 2019 [facility], () Not Given influenza , high-dose , quadrival ent DoD INFLUENZA, UNSPECIFIED FORMULATION [address] [facility] INFLUENZA, HIGH-DOSE, TRIVALENT, PF 1 2018 135 complet ed HISTORICA L INFORMATI ON - FROM OTHER REGISTRY, [facility] Influenza, high dose seasonal 2018 [facility], () Not Given Influenza , high dose seasonal DoD TDAP 2018 115 complet ed Right Deltoid [facility] INFLUENZA, HIGH-DOSE, TRIVALENT, PF 1 2017 135 complet ed HISTORICA L INFORMATI ON - FROM OTHER REGISTRY, [facility] Influenza, high dose seasonal 2016 [facility], () Not Given Influenza , high dose seasonal DoD INFLUENZA, HIGH-DOSE, TRIVALENT, PF 1 2016 135 complet ed HISTORICA L INFORMATI ON - FROM OTHER REGISTRY, [facility] N Influenza, high dose seasonal 2015 [facility], () Not Given Influenza , high dose seasonal DoD INFLUENZA, HIGH-DOSE, TRIVALENT, PF 1 2015 135 complet ed HISTORICA L INFORMATI ON - FROM OTHER REGISTRY, [facility] N INFLUENZA, HIGH-DOSE, TRIVALENT, PF 1 2014 135 complet ed HISTORICA L INFORMATI ON - FROM OTHER REGISTRY, [facility] N ZOSTER LIVE 1 2012 121 complet ed HISTORICA L INFORMATI ON - FROM OTHER REGISTRY, [facility] N INFLUENZA, SPLIT VIRUS, TRIVALENT, PRESERVATIVE 1 2012 141 complet ed HISTORICA L INFORMATI ON - FROM OTHER [facility], [facility] Vital Signs Combined list of inpatient and outpatient Vital Signs from Department of Defense and Veterans Affairs, ranging from 12 months to all on record, depending upon the facility. Vital Sign Value Date Comments Source SYSTOLIC BLOOD PRESSURE 133 08/17/2024 13:58:29 . [facility] DIASTOLIC BLOOD PRESSURE 67 08/17/2024 13:58:29 [facility] PULSE OXIMETRY 96 % 08/17/2024 13:58:29 S Rocco HUANG [facility] WEIGHT 198.8 08/17/2024 13:58:29 [facility] BMI 29 kg/m2 08/17/2024 13:58:[facility] PAIN 0 08/17/2024 13:58:29 [facility] HEIGHT 70 08/17/2024 13:58:29 [facility] TEMPERATURE 97.7 08/17/2024 13:58:29 [facility] PULSE 83 08/17/2024 13:58:29 Peter VOGEL [facility] RESPIRATION 18 08/17/2024 13:58:29 [facility] Encounters Combined list of: 1) Encounters from Department of [facility] Affairs facilities going backup to the last 18 months, not all VA inpatient encounters are included; 2) Encounters from the Department of [facility] facilities going backup to 280 months. Location Location Details Encounter Type Encounter Number Reason For Visit Attending Provider ADM Date DC Date Status Disposition Source [facility] Outpatient Encounter [id number] 04/10 [facility] Outpatient Encounter [id number] ILDA OSORIO 08/11 [facility] FUNDUS PHOTOGRAPH Y W/I&R [id number] Diagnos is: ICD-10- CM Z13.5 Encount er for screeni ng for eye and ear disorde BENJAMIN Baker 08/17 [facility] OFFICE O/P EST LOW 20 MIN [id number] Diagnos is: ICD-10- CM G91.1 Obstruc tive hydroce phalus DEPAULO,PORTER DONGE 08/17 [facility] Outpatient Encounter [id number] Diagnos is: ICD-10- CM Z13.9 Encount er for screeni ng, unspeci MANE Coy 08/17 [facility] N [facility] Outpatient Encounter [id number] 08/31 [facility] Outpatient Encounter [id number] 12/01 [facility] Outpatient Encounter [id number] 01/31 [facility] Outpatient Encounter [id number] 05/01 [facility] Outpatient Encounter [id number] 08/09 [facility] OFFICE O/P EST MOD 30 MIN [id number] Diagnos is: ICD-10- CM Z00.00 Encntr for general adult medical exam w/o abnorma l finding s GERMAN KOROMA 08/17 [facility] Social History Combined list of available smoking, tobacco, and other social history from Department of Defense and [facility] facilities. Social History Type Response Date Comment Sour e Tobacco smoking status NHIS VA-TOBACCO USE FORMER CIGARETTES 08/17/2024 [facility] History of tobacco use [place]-TOBACCO NEVER USED OTHER TYPE 08/17/2024 [facility] History of tobacco use VA-TOBACCO USER EVERY DAY 08/18/2023 [facility] History of tobacco use VA-TOBACCO USER EVERY DAY 06/05/2022 [facility] History of tobacco use VA-TOBACCO USER EVERY DAY 06/13/2021 [facility] History of tobacco use VA-TOBACCO USE [employer] NO 08/05/2019 [facility] History of tobacco use [place]-TOBACCO USE [employer] NO 07/02/2018 [facility] This section is an empty social history section. DoD
--- NOTE | 2024-09-06 11:15 | NEURO_ITS ---
Impression: # Complains of numbness of right hand. ? # No Carpal Tunnel Syndrome. # Right ulnar neuropathy across the elbow. ? # Normal needle/EMG exam. Nerve Conduction Studies ?Stim Site NR Peak (ms) P-T Amp (?V) Site1 Site2 Delta-P (ms) Dist (cm) Herbert (m/s) Right Median Anti Sensory (2-3nd Digit) Wrist ? 3.7 20.0 Wrist 2-3nd Digit 3.7 14.0 38 Wrist ? 3.5 11.9 Wrist 2-3nd Digit 3.7 14.0 38 Right Radial Anti Sensory (Base 1st Digit) Wrist ? 2.8 5.2 Wrist Base 1st Digit 2.8 0.0 Right Ulnar Anti Sensory (5th Digit) Wrist ? 3.2 22.5 Wrist 5th Digit 3.2 14.0 44 ?Stim Site NR Onset (ms) O-P Amp (mV) Site1 Site2 Delta-0 (ms) Dist (cm) Herbert (m/s) Right Median Motor (Abd Poll Brev) Wrist ? 3.3 5.1 Elbow Wrist 5.7 32.0 56 Elbow ? 9.0 3.3 Right Ulnar Motor (Abd Dig Minimi) Wrist ? 2.7 5.2 A Elbow Wrist 6.4 30.0 47 A Elbow ? 9.1 3.7 B Elbow Wrist 4.2 23.0 55 B Elbow ? 6.9 4.2 Electromyography ?Side Muscle Nerve Root Ins Act Fibs Amp Dur Recrt Comment Right 1stDorInt Ulnar C8-T1 Nml Nml Nml Nml Nml Right Ext Indicis Radial (Post Int) C7-8 Nml Nml Nml Nml Nml Right Ext Digitorum Radial (Post Int) C7-8 Nml Nml Nml Nml Nml Right BrachioRad Radial C5-6 Nml Nml Nml Nml Nml Right PronatorTeres Median C6-7 Nml Nml Nml Nml Nml Right Abd Poll Brev Median C8-T1 Nml Nml Nml Nml Nml Right ABD Dig Min Ulnar C8-T1 Nml Nml Nml Nml Nml Right FlexPolLong Median (Ant Int) C7-8 Nml Nml Nml Nml Nml Right Abd Poll Long Radial (Post Int) C7-8 Nml Nml Nml Nml Nml Right Biceps Musculocut C5-6 Nml Nml Nml Nml Nml Right Triceps Radial C6-7-8 Nml Nml Nml Nml Nml Right Deltoid Axillary C5-6 Nml Nml Nml Nml Nml
== END 2024-09-06 08:34 | disposition home or self-care (01) ==
PROVIDERS: PCP Family Medicine; Visit Provider Family Medicine
DX: G56.21 Lesion of ulnar nerve, right upper limb (principal)
CPT/HCPCS: 95886; 95909